=== PATIENT | female | born 1940 | race Caucasian/White ===

== ENCOUNTER → 2016-11-03 | Outpatient (REF) | payer OTHER, MEDICAID ==
[~2016-11-03] MED LIST: ALBU17IN INH; ASPI325T PO; ATOR1TAB21 PO; BREO1INH INH; COLA100C PO; ELIQ5TAB PO; INCR1INH INH; LEVO500T32 PO; LISI-538 PO; METO25TAB PO; PANT40TA2 PO; SENN1TAB2 PO; SYNT100T PO; VITA100066 PO
[2016-11-03 13:02] LABS: MEAN CORPUSCULAR HEMOGLOBIN 28.6 pg (27.0-33.0); MEAN CORPUSCULAR HGB CONC 31.5 g/dl (32.0-36.5); MEAN CORPUSCULAR VOLUME 90.8 fl (80.0-96.0); RED CELL DISTRIBUTION WIDTH 13.3 % (11.5-14.5); WHITE BLOOD COUNT 6.9 K/mm3 (4.0-10.0)
[2016-11-03 13:49] LABS: ALBUMIN 3.4 GM/DL (3.2-5.2); ALBUMIN/GLOBULIN RATIO 1.06 (1.00-1.93); ALKALINE PHOSPHATASE 89 U/L (45-117); ALT/SGPT 19 U/L (12-78); ANION GAP 4 MEQ/L (8-16); AST/SGOT 18 U/L (15-37); BILIRUBIN,TOTAL 0.5 MG/DL (0.2-1.0); BLOOD UREA NITROGEN 11 MG/DL (7-18); CALCIUM LEVEL 8.8 MG/DL (8.8-10.2); CARBON DIOXIDE LEVEL 30 MEQ/L (21-32); CHLORIDE LEVEL 107 MEQ/L (98-107); CREATININE FOR GFR 0.82 MG/DL (0.55-1.02); GLOMERULAR FILTRATION RATE > 60.0 (>39); GLUCOSE, FASTING 88 MG/DL (83-110); POTASSIUM SERUM 4.9 MEQ/L (3.5-5.1); SODIUM LEVEL 141 MEQ/L (136-145); TOTAL PROTEIN 6.6 GM/DL (6.4-8.2)
== END ==
LOC: M SFHCADAM 10:07
PROVIDERS: ATTEND Physician Assistant
DX: I48.0 Paroxysmal atrial fibrillation (principal); I11.9 Hypertensive heart disease without heart failure

== ENCOUNTER 2016-11-09 11:45 | Emergency (ER) | payer OTHER, MEDICAID ==
[2016-11-09] MEDS ORDERED: ASPIRIN 81 MG CHEW TABLET As Ordered ONE (12:16)
[2016-11-09] MEDS ORDERED: METOPROLOL TART 25 MG TABLET As Ordered ONE (12:17)
--- NOTE | 2016-11-09 12:53 | REP ---
Clinical: Chest pain. Technique: PA and lateral. Comparison: 08/19/2016 . Findings: Stable cardiomegaly and diffuse chronic interstitial changes are again appreciated and similar to prior examination. Mild pulmonary venous congestion cannot be excluded. No acute consolidation, or pneumothorax. Blunting along the posterior costophrenic angles on lateral radiographs suggest small pleural effusions. Skeletal structures intact. Impression: Cannot exclude mild pulmonary venous congestion and small pleural effusions. Signed by Mike Meraz MD 11/09/2016 12:45 P
[2016-11-09 12:55] LABS: BASO % 0.4 % (0.0-1.0); EOS # 0.2 K/mm3 (0.0-0.50); EOS % 3.4 % (0.0-3.0); LARGE UNSTAINED CELL # 0.2 K/mm3 (0.0-0.4); LARGE UNSTAINED CELL % 2.2 % (0.0-4.0); MEAN CORPUSCULAR HEMOGLOBIN 29.1 pg (27.0-33.0); MEAN CORPUSCULAR HGB CONC 32.3 g/dl (32.0-36.5); MEAN CORPUSCULAR VOLUME 90.1 fl (80.0-96.0); MONO # 0.4 K/mm3 (0.0-0.8); MONO % 5.9 % (0.0-5.0); NEUTROPHILS # 4.3 K/mm3 (1.8-7.7); NEUTROPHILS % 62.2 % (36.0-66.0); PLATELET COUNT, AUTOMATED 328 k/mm3 (150-450); RED CELL DISTRIBUTION WIDTH 13.1 % (11.5-14.5); WHITE BLOOD COUNT 6.9 K/mm3 (4.0-10.0)
[2016-11-09 13:08] LABS: ANION GAP 5 MEQ/L (8-16); BLOOD UREA NITROGEN 14 MG/DL (7-18); CARBON DIOXIDE LEVEL 31 MEQ/L (21-32); CHLORIDE LEVEL 107 MEQ/L (98-107); GLOMERULAR FILTRATION RATE > 60.0 (>39); GLUCOSE, FASTING 111 MG/DL (83-110); POTASSIUM SERUM 4.3 MEQ/L (3.5-5.1); SODIUM LEVEL 143 MEQ/L (136-145)
--- NOTE | 2016-11-09 13:27 | REP ---
CT HEAD WITHOUT CONTRAST: HISTORY: Headache. Areas of decreased attenuation are present in the periventricular white matter. This represents small vessel ischemic disease. There is no intraparenchymal hemorrhage, mass or midline shift. The ventricular system and cortical sulci are dilated consistent with minimal volume loss. There is no extracerebral collection. The visualized sinuses are clear. IMPRESSION: 1. Small vessel ischemic disease. 2. Minimal volume loss. Signed by Darryl Levy MD 11/09/2016 01:27 P
[2016-11-09] MEDS ORDERED: ISOVUE-370 76% 100ML VIAL (Q9967) As Ordered ONE (13:37)
--- NOTE | 2016-11-09 14:11 | REP ---
Clinical: Acute chest pain. Technique: Axial contrast enhanced images from the thoracic inlet to the upper abdomen using 100 ml Isovue 370 intravenous contrast material with coronal and sagittal re-formations. Findings: Satisfactory enhancement of the pulmonary vasculature is achieved and no filling defects are identified to suggest pulmonary embolus. Lung berry demonstrate mild emphysematous changes as well as minimal posterior basilar atelectasis (left greater than right). Cardiomegaly is noted along with findings to suggest pulmonary vascular congestion. Impression: No evidence for pulmonary embolus. Cardiomegaly with findings to suggest mild pulmonary vascular congestion including minimal posterior basilar atelectasis (left greater than right). Signed by Mike Meraz MD 11/09/2016 02:03 P
[2016-11-09] MEDS ORDERED: FUROSEMIDE 40 MG/4 ML VIAL (J1940) As Ordered ONE (14:24)
--- NOTE | 2016-11-09 19:24 | EDDOCDS ---
Physician Documentation [facility] Name: Cecilia Winn Age: 76 yrs Sex: Female : 1940 Arrival Date: 11/09/2016 Time: 11:45 Bed OBSERVATION Private MD: Catracho Diaz MD Disposition: 11/09/16 19:10 Discharged to Home/Self Care. Impression: Essential (primary) hypertension, Chest pain, unspecified. - Condition is Stable. - Discharge Instructions: Nonspecific Chest Pain, Hypertension. - Medication Reconciliation, Local Pharmacy Hours form. - Follow up: Catracho Diaz; When: Tomorrow; Reason: Recheck today's complaints. Follow up: Michael Carlson MD; When: 2 - 3 days; Reason: Recheck today's complaints. - Problem is new. - Symptoms are resolved. - Notes: You were seen in the ED for high blood pressure with chest pain, which has now resolved. Bloodwork along with EKG of the heart showed no acute findings. Chest Xray and CT scan of the chest showed mild congestion in the lungs, and you were treated with a medicine Lasix to get rid of some excess fluid. Dr. Ambrosio of cardiology was consulted as well and recommended that as you are feeling better you may return home to follow up with them in their office as well as with your primary doctor for recheck of the blood pressure. Please call to arrange to be seen in the morning. Return to the ED for any return of chest pain, trouble breathing, headache, visual changes, or any other concerns. Historical: - Allergies: no known allergies; - Home Meds: 1. Ventolin Rotahaler/Rotacaps 200 mcg Inhl CpDv 2 puff 2. lisinopril 20 mg Oral tab once daily 3. atorvastatin 20 mg oral tab 1 tab once daily 4. Incruse Ellipta 62.5 mcg/actuation inhalation dsdv 1 puff once daily 5. Breo Ellipta 100-25 mcg/dose inhalation dsdv 1 puff once daily 6. levothyroxine 100 mcg Oral cap 1 cap once daily 7. Metoprolol Tartrate 12.5mg Oral 2 times per day 8. senna 8.6 mg oral cap 2 caps once daily 9. docusate sodium 100 mg Oral cap 1 cap once daily 10. pantoprazole 40 mg oral TbEC 1 tab once daily 11. Vitamin D Oral 1000 unit daily 12. Eliquis 5 mg oral tab 1 tab 2 times per day - PMHx: Hypothyroidism; Atrial Fib; Hypertension; Hypercholesterolemia; COPD; GERD; - PSHx: Appendectomy; - Social history: Smoking status: Patient states former smoker of tobacco. No barriers to communication noted, The patient speaks fluent Portuguese, Speaks appropriately for age. - Family history: Not pertinent. - : The pt / caregiver states he / she is on anticoagulants: Eliquis Home medication list is obtained from the patient. - Exposure Risk Screening:: None identified. Vital Signs: 11/09 11:49 BP 187 / 82 RA Sitting (auto/lg); Pulse 56; Resp 16; Temp 98.6(O); Pulse Ox 100% on rs6 R/A; Weight 101.6 kg / 223.99 lbs (R); Height 5 ft. 7 in. (170.18 cm) (R); Pain 3/10; 12:35 BP 185 / 82 RA Supine (man/lg); rs3 12:53 Pulse 52 MON; Pulse Ox 95% ; rs3 13:53 BP 175 / 93 (auto/); rs3 13:55 Pulse 52 MON; Pulse Ox 94% ; rs3 14:05 BP 164 / 76 (auto/); rs3 14:05 Pulse 52 MON; Pulse Ox 92% ; rs3 14:35 BP 194 / 85 (auto/); rs3 14:35 Pulse 54 MON; Pulse Ox 96% ; rs3 14:50 BP 179 / 81 (auto/); rs3 14:50 Pulse 50 MON; Pulse Ox 92% ; rs3 15:20 BP 164 / 76 (auto/); rs3 15:20 Pulse 50 MON; Pulse Ox 93% ; rs3 15:35 BP 173 / 81 (auto/); rs3 15:35 Pulse 50 MON; Pulse Ox 96% ; rs3 15:50 BP 164 / 75 (auto/); rs3 15:50 Pulse 50 MON; Pulse Ox 92% ; rs3 16:05 BP 155 / 74 (auto/); rs3 16:05 Pulse 50 MON; Pulse Ox 94% ; rs3 16:35 BP 146 / 71 (auto/); rs3 16:35 Pulse 48 MON; Pulse Ox 93% ; rs3 16:50 BP 137 / 72 (auto/); rs3 16:50 Pulse 46 MON; Pulse Ox 94% ; rs3 17:05 BP 153 / 72 (auto/); rs3 17:05 Pulse 52 MON; Pulse Ox 93% ; rs3 17:20 BP 176 / 80 (auto/); rs3 17:20 Pulse 50 MON; Pulse Ox 95% ; rs3 17:35 BP 158 / 74 (auto/); rs3 17:35 Pulse 50 MON; Pulse Ox 95% ; rs3 17:51 BP 144 / 67 (auto/); rs3 17:51 Pulse 66 MON; Pulse Ox 93% ; rs3 18:06 BP 188 / 81 (auto/); rs3 18:06 Pulse 62 MON; Pulse Ox 94% ; rs3 18:21 BP 167 / 72 (auto/); rs3 18:21 Pulse 52 MON; Pulse Ox 94% ; rs3 18:34 Pulse 54 MON; Pulse Ox 94% ; rs3 18:36 BP 152 / 67 (auto/); kas2 18:36 Pulse 58 MON; Pulse Ox 95% ; kas2 18:51 BP 137 / 65 (auto/); kas2 18:51 Pulse 52 MON; Pulse Ox 92% ; kas2 19:06 BP 124 / 53 (auto/); kas2 19:06 Pulse 48 MON; Pulse Ox 94% ; kas2 19:22 BP 128 / 57; Pulse 53; Resp 18; Temp 98.0; Pulse Ox 99% on R/A; Pain 0/10; kas2 11:49 Body Mass Index 35.08 (101.60 kg, 170.18 cm) rs6 MDM: 12:08 Wafer Substrate Tester/Pulse Ox/q 30 min VS ordered. br1 12:08 IV Saline Lock ordered. br1 12:08 Rhythm Strip to chart ordered. br1 12:08 Undress patient appropriately for examination ordered. br1 12:09 Aspirin 324 mg PO once ordered. br1 12:09 Metoprolol (Tartrate) 12.5 mg PO once ordered. br1 12:10 Basic Metabolic Profile Ordered. EDMS 12:10 CBC with Diff Ordered. EDMS 12:10 Cardiac Injury Profile Ordered. EDMS 12:10 Troponin Ordered. EDMS 12:11 Chest, 2 View (pa\E\lat) Ordered. EDMS 12:11 ECG WITH READING ER PHYS+CARDIAG ordered. EDMS 12:11 CT Head Without Contrast Ordered. EDMS 12:12 Misc. Nursing Order ordered. br1 12:50 Financial registration complete. lg 12:59 CBC with Diff Reviewed. br1 13:29 [facility] [place] was scanned into [email or web address] and attached to record. lg 13:34 Basic Metabolic Profile Reviewed. br1 13:34 Cardiac Injury Profile Reviewed. br1 13:34 Troponin Reviewed. br1 13:34 Chest, 2 View (pa\E\lat) Reviewed. br1 13:36 CT Chest Angio R/O PE Ordered. EDMS 14:19 Furosemide 40 mg IVP once ordered. br1 14:32 Admit to ED Observation status ordered. br1 14:33 Repeat EKG (put time details section) ordered. br1 14:33 Redraw CIP &Troponin (put time in details section) ordered. br1 14:38 ECG WITH READING ER PHYS ordered. EDMS 14:39 CARDIAC MARKER PANEL Ordered. EDMS 14:45 Redraw CIP &Troponin (put time in details section) complete. mt4 14:45 Repeat EKG (put time details section) complete. mt4 14:45 Admit to ED Observation status complete. mt4 15:55 Ambulate Patient wth Pulse Oximetry ordered. br1 18:42 CARDIAC MARKER PANEL Reviewed. br1 18:42 CT Head Without Contrast Reviewed. br1 18:42 CT Chest Angio R/O PE Reviewed. br1 Administered Medications: 12:35 Drug: Aspirin 324 mg [aspirin 81 mg chewable tablet (4 tabs)] Route: PO; rs3 12:35 Drug: Metoprolol 12.5 mg [metoprolol tartrate 25 mg tablet (0.5 tabs)] Route: PO; rs3 14:27 Drug: Furosemide 40 mg [furosemide 10 mg/mL injection solution (4 mL)] Route: IVP; rs3 Site: right antecubital; Signatures: Dispatcher [employer] EDMS Alena Fung Reg Reg lg Jose Ball MD MD br1 Candie Escobar mt4 Ya Aranda RN RN pml Smith, Kim, RN RN [facility] Erna Chavira RN rs3 The chart was reviewed and I authenticate all verbal orders and agree with the evaluation and treatment provided.Attachments: 13:29 [facility] Payment Agreement lg MTDD
--- NOTE | 2016-11-09 19:24 | EDDOCDS ---
Nurse's Notes [facility] Name: Cecilia Winn Age: 76 yrs Sex: Female : 1940 Arrival Date: 11/09/2016 Time: 11:45 Bed OBSERVATION Private MD: Catracho Diaz MD Diagnosis: Essential (primary) hypertension;Chest pain, unspecified Presentation: 11/09 11:50 Presenting complaint: Patient states: reports high blood pressure this morning with pml home machine. reports hx of hypertension and compliance with meds. reports intermittent chest pain off and on. none at this time. Adult Sepsis Screening: The patient does not have new or worsening altered mentation. Patient's respiratory rate is less than 22. Systolic blood pressure is greater than 100. Patient has a qSOFA score of 0- Negative Sepsis Screen. Suicide/Homicide risk assessment- the patient denies having any suicidal and/or homicidal ideations and does not present with any other emotional, behavioral or mental health complaints. Status: Patient is not a health services director or dependent. Transition of care: patient was not received from another setting of care. 11:50 Acuity: MICKIE Level 3 [facility] 11:50 Method Of Arrival: Walkin/Carried/Asstd pml Triage Assessment: 11:56 General: Appears in no apparent distress, comfortable, Behavior is appropriate for age, pml cooperative. Pain: Denies pain. Historical: - Allergies: no known allergies; - Home Meds: 1. Ventolin Rotahaler/Rotacaps 200 mcg Inhl CpDv 2 puff 2. lisinopril 20 mg Oral tab once daily 3. atorvastatin 20 mg oral tab 1 tab once daily 4. Incruse Ellipta 62.5 mcg/actuation inhalation dsdv 1 puff once daily 5. Breo Ellipta 100-25 mcg/dose inhalation dsdv 1 puff once daily 6. levothyroxine 100 mcg Oral cap 1 cap once daily 7. Metoprolol Tartrate 12.5mg Oral 2 times per day 8. senna 8.6 mg oral cap 2 caps once daily 9. docusate sodium 100 mg Oral cap 1 cap once daily 10. pantoprazole 40 mg oral TbEC 1 tab once daily 11. Vitamin D Oral 1000 unit daily 12. Eliquis 5 mg oral tab 1 tab 2 times per day - PMHx: Hypothyroidism; Atrial Fib; Hypertension; Hypercholesterolemia; COPD; GERD; - PSHx: Appendectomy; - Social history: Smoking status: Patient states former smoker of tobacco. No barriers to communication noted, The patient speaks fluent Icelandic, Speaks appropriately for age. - Family history: Not pertinent. - : The pt / caregiver states he / she is on anticoagulants: Eliquis Home medication list is obtained from the patient. - Exposure Risk Screening:: None identified. Screenin:56 Screening information is obtained from the patient. Fall risk: No risks identified. rs3 Assistance ADL's: requires no assistance with activities of daily living. Abuse/DV Screen: The patient / caregiver reports he/she is: not in a situation that causes fear, pain or injury. Nutritional screening: No deficits noted. Advance Directives: Currently, there is a health care proxy, ANIYAH Valdovinos (Daughter). There is an active DNR order but there is no copy available at this time. home support is adequate. Assessment: 12:19 General: Appears in no apparent distress, Behavior is appropriate for age, cooperative. rs3 Pain: Location: anterior aspect of left upper chest and left breast. Neurological: Level of Consciousness is awake, alert, Oriented to person, place, time. Cardiovascular: Capillary refill < 3 seconds Clubbing of nail beds is absent Heart tones S1 S2 present Rhythm is atrial fibrillation with no ectopy Chest pain is denied. Respiratory: Airway is patent Respiratory effort is even, unlabored, Respiratory pattern is regular, symmetrical, Breath sounds are clear bilaterally. Derm: Skin is pink, warm & dry. 13:55 General: Appears in no apparent distress, denies of chest pain. reports of generalized rs3 weakness. ambulated to bathroom. tolerated well. returned from CT. Tolerated procedure well. resting comfortable. call mack in reach. 14:55 General: Appears in no apparent distress, Behavior is appropriate for age, cooperative, rs3 denies of chest pain/distress. breathes easy. family at bedside. 15:50 General: Appears in no apparent distress, Behavior is appropriate for age, cooperative, rs3 denies of pain/distress. waiting for repeat card mike. family at bedside. 16:50 General: Appears in no apparent distress, denies of pain/distress. requesting food to rs3 eat. ramiro yakov given to her. waiting for repeat Card mike. 17:44 General: Appears in no apparent distress, Behavior is appropriate for age, cooperative, rs3 denies of pain/distress. family at bedside. will continue to monitor. . 18:34 General: Appears in no apparent distress, Behavior is appropriate for age, cooperative, rs3 denies of chest pain/distress. Had eaten sandwich. tolerated well. ambulated in oneal way. tolerated well. breathes easy. 19:04 General: Verbal report given by Kassy Daley RN. Assumed care of patient at this time.. kas2 19:20 General: Appears in no apparent distress, comfortable, Behavior is appropriate for age, kas2 cooperative. Pain: Denies pain. Neurological: Level of Consciousness is awake, alert, Oriented to person, place, time. Cardiovascular: Capillary refill < 3 seconds Clubbing of nail beds is absent Heart tones S1 S2 present Rhythm is atrial fibrillation with no ectopy Chest pain is denied. Respiratory: Airway is patent Respiratory effort is even, unlabored, Respiratory pattern is regular, symmetrical, Breath sounds are clear bilaterally. Derm: Skin is intact, Skin is dry, Skin is pink, warm & dry. Skin temperature is warm. Vital Signs: 11:49 BP 187 / 82 RA Sitting (auto/lg); Pulse 56; Resp 16; Temp 98.6(O); Pulse Ox 100% on rs6 R/A; Weight 101.6 kg (R); Height 5 ft. 7 in. (170.18 cm) (R); Pain 3/10; 12:35 BP 185 / 82 RA Supine (man/lg); rs3 12:53 Pulse 52 MON; Pulse Ox 95% ; rs3 13:53 BP 175 / 93 (auto/); rs3 13:55 Pulse 52 MON; Pulse Ox 94% ; rs3 14:05 BP 164 / 76 (auto/); rs3 14:05 Pulse 52 MON; Pulse Ox 92% ; rs3 14:35 BP 194 / 85 (auto/); rs3 14:35 Pulse 54 MON; Pulse Ox 96% ; rs3 14:50 BP 179 / 81 (auto/); rs3 14:50 Pulse 50 MON; Pulse Ox 92% ; rs3 15:20 BP 164 / 76 (auto/); rs3 15:20 Pulse 50 MON; Pulse Ox 93% ; rs3 15:35 BP 173 / 81 (auto/); rs3 15:35 Pulse 50 MON; Pulse Ox 96% ; rs3 15:50 BP 164 / 75 (auto/); rs3 15:50 Pulse 50 MON; Pulse Ox 92% ; rs3 16:05 BP 155 / 74 (auto/); rs3 16:05 Pulse 50 MON; Pulse Ox 94% ; rs3 16:35 BP 146 / 71 (auto/); rs3 16:35 Pulse 48 MON; Pulse Ox 93% ; rs3 16:50 BP 137 / 72 (auto/); rs3 16:50 Pulse 46 MON; Pulse Ox 94% ; rs3 17:05 BP 153 / 72 (auto/); rs3 17:05 Pulse 52 MON; Pulse Ox 93% ; rs3 17:20 BP 176 / 80 (auto/); rs3 17:20 Pulse 50 MON; Pulse Ox 95% ; rs3 17:35 BP 158 / 74 (auto/); rs3 17:35 Pulse 50 MON; Pulse Ox 95% ; rs3 17:51 BP 144 / 67 (auto/); rs3 17:51 Pulse 66 MON; Pulse Ox 93% ; rs3 18:06 BP 188 / 81 (auto/); rs3 18:06 Pulse 62 MON; Pulse Ox 94% ; rs3 18:21 BP 167 / 72 (auto/); rs3 18:21 Pulse 52 MON; Pulse Ox 94% ; rs3 18:34 Pulse 54 MON; Pulse Ox 94% ; rs3 18:36 BP 152 / 67 (auto/); kas2 18:36 Pulse 58 MON; Pulse Ox 95% ; kas2 18:51 BP 137 / 65 (auto/); kas2 18:51 Pulse 52 MON; Pulse Ox 92% ; kas2 19:06 BP 124 / 53 (auto/); kas2 19:06 Pulse 48 MON; Pulse Ox 94% ; kas2 19:22 BP 128 / 57; Pulse 53; Resp 18; Temp 98.0; Pulse Ox 99% on R/A; Pain 0/10; kas2 11:49 Body Mass Index 35.08 (101.60 kg, 170.18 cm) rs6 Vitals: 11:56 Log In Time: November 09, 2016 at 11:45. [facility] ED Course: 11:48 Patient visited by Pema Priest PCA. rs6 11:48 Catracho Diaz is Private Physician. rs6 11:48 Patient moved to Waiting rs6 11:49 Patient moved to Pre RCE rs6 11:50 Triage Initiated pml 11:56 Patient visited by Ya Aranda,RN. pml 11:57 Patient visited by Ya Aranda,THADDEUS. pml 11:57 Erna Chavira,THADDEUS is Primary Nurse. pml 11:57 Patient moved to 7 pml 11:58 Jose Ball MD is Attending Physician. br1 12:08 Patient visited by Jose Ball MD. br1 12:36 Basic Metabolic Profile Sent. rs3 12:36 CBC with Diff Sent. rs3 12:36 Cardiac Injury Profile Sent. rs3 12:36 Troponin Sent. rs3 12:42 Patient visited by Erna Chavira RN. rs3 13:09 Chest, 2 View (pa\E\lat) Returned. EDMS 13:29 [facility] [place] Payment Agreement was scanned into [employer] and attached to record. lg 13:33 Patient visited by Erna Chavira RN. rs3 13:51 CT Head Without Contrast Returned. EDMS 13:56 Inserted saline lock: 20 gauge in right antecubital area and blood collected. The rs3 patient tolerated the procedure well. Labs drawn. (by ED staff). 14:06 Patient visited by Erna Chavira RN. rs3 14:35 Patient moved to OBSERVATION mt4 14:36 CT Chest Angio R/O PE Returned. EDMS 18:13 Patient visited by Farrukh Salazar PCA. jlf 18:13 Patient visited by Farrukh Salazar PCA. jlf 18:13 quality assurance monitor chassis on. Pulse ox on. NIBP on. jlf 18:13 EKG done. (by ED staff). Reviewed by Jose Ball MD. jlf 18:56 Patient visited by Jose Ball MD. br1 18:59 Wendy Rudolph RN is Primary Nurse. kas2 19:09 Catracho Diaz is Referral Physician. br1 19:09 Michael Carlson MD is Referral Physician. br1 19:21 The patient / caregiver is instructed regarding the plan of care and ED course. kas2 19:21 Discontinued IV bleeding controlled, pressure dressing applied, No redness/swelling at kas2 site. No procedures done that require assistance. 19:22 Patient visited by Wendy Rudolph RN. [facility] [place] 19:23 Patient visited by Wendy Rudolph RN. [facility] [place] Administered Medications: 12:35 Drug: Aspirin 324 mg [aspirin 81 mg chewable tablet (4 tabs)] Route: PO; rs3 12:35 Drug: Metoprolol 12.5 mg [metoprolol tartrate 25 mg tablet (0.5 tabs)] Route: PO; rs3 14:27 Drug: Furosemide 40 mg [furosemide 10 mg/mL injection solution (4 mL)] Route: IVP; rs3 Site: right antecubital; Order Results: Lab Order: Basic Metabolic Profile; [facility] 11/09/16 12:33 Test: GLUCOSE, FASTING; Value: 111; Range: 83-110; Abnormal: Above high normal; Units: MG/DL; Status: F Test: BLOOD UREA NITROGEN; Value: 14; Range: 7-18; Units: MG/DL; Status: F Test: CREATININE FOR GFR; Value: 0.80; Range: 0.55-1.02; Units: MG/DL; Status: F Test: GLOMERULAR FILTRATION RATE; Value: > 60.0; Range: >39; Status: F Test: SODIUM LEVEL; Value: 143; Range: 136-145; Units: MEQ/L; Status: F Test: POTASSIUM SERUM; Value: 4.3; Range: 3.5-5.1; Units: MEQ/L; Status: F Test: CHLORIDE LEVEL; Value: 107; Range: 98-107; Units: MEQ/L; Status: F Test: CARBON DIOXIDE LEVEL; Value: 31; Range: 21-32; Units: MEQ/L; Status: F Test: ANION GAP; Value: 5; Range: 8-16; Abnormal: Below low normal; Units: MEQ/L; Status: F Test: CALCIUM LEVEL; Value: 9.0; Range: 8.8-10.2; Units: MG/DL; Status: F Test Note: ; Units are mL/min/1.73 m2 Chronic Kidney Disease Staging per NKF: Stage I & II GFR >=60 Normal to Mildly Decreased Stage III GFR 30-59 Moderately Decreased Stage IV GFR 15-29 Severely Decreased Stage V GFR <15 Very Little GFR Left ESRD GFR <15 on FRESCO ARTIST Lab Order: CBC with Diff; SPEC'M 11/09/16 12:33 Test: WHITE BLOOD COUNT; Value: 6.9; Range: 4.0-10.0; Units: K/mm3; Status: F Test: RED BLOOD COUNT; Value: 4.06; Range: 4.00-5.40; Units: M/mm3; Status: F Test: HEMOGLOBIN; Value: 11.8; Range: 12.0-16.0; Abnormal: Below low normal; Units: g/dl; Status: F Test: HEMATOCRIT; Value: 36.6; Range: 36.0-47.0; Units: %; Status: F Test: MEAN CORPUSCULAR VOLUME; Value: 90.1; Range: 80.0-96.0; Units: fl; Status: F Test: MEAN CORPUSCULAR HEMOGLOBIN; Value: 29.1; Range: 27.0-33.0; Units: pg; Status: F Test: MEAN CORPUSCULAR HGB CONC; Value: 32.3; Range: 32.0-36.5; Units: g/dl; Status: F Test: RED CELL DISTRIBUTION WIDTH; Value: 13.1; Range: 11.5-14.5; Units: %; Status: F Test: PLATELET COUNT, AUTOMATED; Value: 328; Range: 150-450; Units: k/mm3; Status: F Test: NEUTROPHILS %; Value: 62.2; Range: 36.0-66.0; Units: %; Status: F Test: LYMPH %; Value: 26.0; Range: 24.0-44.0; Units: %; Status: F Test: MONO %; Value: 5.9; Range: 0.0-5.0; Abnormal: Above high normal; Units: %; Status: F Test: EOS %; Value: 3.4; Range: 0.0-3.0; Abnormal: Above high normal; Units: %; Status: F Test: BASO %; Value: 0.4; Range: 0.0-1.0; Units: %; Status: F Test: LARGE UNSTAINED CELL %; Value: 2.2; Range: 0.0-4.0; Units: %; Status: F Test: NEUTROPHILS #; Value: 4.3; Range: 1.8-7.7; Units: K/mm3; Status: F Test: LYMPH #; Value: 2.0; Range: 1.5-4.5; Units: K/mm3; Status: F Test: MONO #; Value: 0.4; Range: 0.0-0.8; Units: K/mm3; Status: F Test: EOS #; Value: 0.2; Range: 0.0-0.50; Units: K/mm3; Status: F Test: BASO #; Value: 0.0; Range: 0.0-0.2; Units: K/mm3; Status: F Test: LARGE UNSTAINED CELL #; Value: 0.2; Range: 0.0-0.4; Units: K/mm3; Status: F Lab Order: Cardiac Injury Profile; [facility] 11/09/16 12:33 Test: CPK CREATINE PHOSPHOKINASE; Value: 38; Range: 26-192; Units: U/L; Status: F Test: CK-MB VALUE MASS; Value: 1.0; Range: 0.0-3.6; Units: NG/ML; Status: F Test: MB/CK RELATIVE INDEX; Value: 2.63; Range: < OR =4; Status: F Test Note: ; DIAGNOSIS CRITERIA MMB ng/ml Relative Index (RI) NON-AMI < or = 5 N/A CURRAN ZONE > 5 < or = 4 AMI > 5 > 4 Lab Order: Troponin; [facility] 11/09/16 12:33 Test: TROPONIN I; Value: < 0.02; Range: < 0.10; Units: NG/ML; Status: F Test Note: ; Troponin I Reference Interval for [employer] LOCI: 99th Percentile= 0.00-0.045 ng/ml Risk Stratification: <= 0.10 ng/ml Decreased Risk for Adverse Clinical Events. 0.10-1.50 ng/ml Increased Risk for Adverse Clinical Events. Evaluation of additional criterion and/or repeat testing in 2-6 hours is suggested to rule out myocardial damage. >= 1.50 ng/ml Indicative of Myocardial Injury. Lab Order: CARDIAC MARKER PANEL; [facility] 11/09/16 17:46 Test: CPK CREATINE PHOSPHOKINASE; Value: 52; Range: 26-192; Units: U/L; Status: F Test: CK-MB VALUE MASS; Value: 1.0; Range: 0.0-3.6; Units: NG/ML; Status: F Test: MB/CK RELATIVE INDEX; Value: 1.92; Range: < OR =4; Status: F Test: TROPONIN I; Value: < 0.02; Range: < 0.10; Units: NG/ML; Status: F Test Note: ; DIAGNOSIS CRITERIA MMB ng/ml Relative Index (RI) NON-AMI < or = 5 N/A CURRAN ZONE > 5 < or = 4 AMI > 5 > 4 Radiology Order: Chest, 2 View (pa\E\lat) Test: Chest, 2 View (pa\E\lat) REASON FOR EXAMINATION: Chest Pain; Clinical: Chest pain.; ; Technique: PA and lateral.; ; Comparison: 08/19/2016 .; ; Findings:; Stable cardiomegaly and diffuse chronic interstitial changes are again; appreciated and similar to prior examination. Mild pulmonary venous congestion; cannot be excluded. No acute consolidation, or pneumothorax. Blunting along the; posterior costophrenic angles on lateral radiographs suggest small pleural; effusions. Skeletal structures intact.; ; Impression:; Cannot exclude mild pulmonary venous congestion and small pleural effusions.; ; ; Signed by; Mike Meraz MD 11/09/2016 12:45 P; Radiology Order: CT Head Without Contrast Test: CT Head Without Contrast REASON FOR EXAMINATION: htn headache eval for ich; CT HEAD WITHOUT CONTRAST:; ; HISTORY: Headache.; ; Areas of decreased attenuation are present in the periventricular white matter.; This represents small vessel ischemic disease. There is no intraparenchymal; hemorrhage, mass or midline shift. The ventricular system and cortical sulci are; dilated consistent with minimal volume loss. There is no extracerebral; collection. The visualized sinuses are clear.; ; IMPRESSION:; ; 1. Small vessel ischemic disease.; ; 2. Minimal volume loss.; ; ; Signed by; Darryl Levy MD 11/09/2016 01:27 P; Radiology Order: CT Chest Angio R/O PE Test: CT Chest Angio R/O PE REASON FOR EXAMINATION: Chest Pain; Clinical: Acute chest pain.; ; Technique: Axial contrast enhanced images from the thoracic inlet to the upper; abdomen using 100 ml Isovue 370 intravenous contrast material with coronal and; sagittal re-formations.; ; Findings: Satisfactory enhancement of the pulmonary vasculature is achieved and; no filling defects are identified to suggest pulmonary embolus. Lung berry; demonstrate mild emphysematous changes as well as minimal posterior basilar; atelectasis (left greater than right). Cardiomegaly is noted along with findings; to suggest pulmonary vascular congestion.; ; Impression:; No evidence for pulmonary embolus.; Cardiomegaly with findings to suggest mild pulmonary vascular congestion; including minimal posterior basilar atelectasis (left greater than right).; ; ; Signed by; Mike Meraz MD 11/09/2016 02:03 P; Outcome: 19:10 Discharge ordered by Provider. br1 19:21 Discharge Assessment: patient administered narcotics - no. The following High Risk [facility] Discharge criteria are identified: None. Discharged to home ambulatory, with family. Condition: good Condition: stable Condition: improved. CT Study completed. Property :Personal belongings accompany Pt. 19:23 Patient left the ED. kas2 Signatures: Dispatcher [employer] EDMS Alena Fung, Reg Reg lg Jose Ball MD MD br1 Candie Escobar mt4 Erna ChaviraRN RN rs3 Ya ArandaRN RN pml Farrukh Salazar, TORCH STRAIGHTENER TORCH STRAIGHTENER [facility] Pema Priest, TORCH STRAIGHTENER TORCH STRAIGHTENER rs6 Wendy Rudolph,RN RN kas2 Corrections: (The following items were deleted from the chart) 11:57 11:50 Presenting complaint: Patient states: reports high blood pressure this morning pml with home machine. reports hx of hypertension and compliance with meds. denies any other associated symptoms pml MTDD
--- NOTE | 2016-11-09 20:16 | ECGEPIP ---
Stationary ECG Study [facility] - ED Test Date: 2016-11-09 Pat Name: JERONIMO ACE Department: Room: - Gender: F Technical Support Assistant: : 1940 Requested By: YULIANA Patel Order Number: [id number] Reading MD: Jennifer Ames Measurements Intervals [place] Rate: 56 P: 65 SD: 141 QRS: 47 QRSD: 94 T: 42 QT: 444 QTc: 430 Interpretive Statements SINUS BRADYCARDIA DECREASED RATE 08/19/16 Electronically Signed On 11-09-2016 20:16:07 EST by Jennifer Ames
--- NOTE | 2016-11-11 08:15 | ECGEPIP ---
Stationary ECG Study [facility] - ED Test Date: 2016-11-09 Pat Name: JERONIMO ACE Department: Room: - Gender: F Insurance Collector: norma : 1940 Requested By: YULIANA Patel Order Number: [id number] Reading MD: Jennifer Ames Measurements Intervals [place] Rate: 56 P: 62 PA: 134 QRS: 29 QRSD: 94 T: 45 QT: 456 QTc: 443 Interpretive Statements SINUS BRADYCARDIA NSTTW ABNORMALITY SIMILAR 11/09/16 12:24 Electronically Signed On 11-11-2016 8:15:23 EST by Jennifer Ames
--- NOTE | 2016-11-11 20:25 | EDDOCDS ---
Physician Documentation [facility] Name: Cecilia Winn Age: 76 yrs Sex: Female : 1940 Arrival Date: 11/09/2016 Time: 11:45 Bed OBSERVATION Private MD: Catracho Diaz MD Disposition: 11/09/16 19:10 Discharged to Home/Self Care. Impression: Essential (primary) hypertension, Chest pain, unspecified. - Condition is Stable. - Discharge Instructions: Nonspecific Chest Pain, Hypertension. - Medication Reconciliation, Local Pharmacy Hours form. - Follow up: Catracho Diaz; When: Tomorrow; Reason: Recheck today's complaints. Follow up: Michael Carlson MD; When: 2 - 3 days; Reason: Recheck today's complaints. - Problem is new. - Symptoms are resolved. - Notes: You were seen in the ED for high blood pressure with chest pain, which has now resolved. Bloodwork along with EKG of the heart showed no acute findings. Chest Xray and CT scan of the chest showed mild congestion in the lungs, and you were treated with a medicine Lasix to get rid of some excess fluid. Dr. Ambrosio of cardiology was consulted as well and recommended that as you are feeling better you may return home to follow up with them in their office as well as with your primary doctor for recheck of the blood pressure. Please call to arrange to be seen in the morning. Return to the ED for any return of chest pain, trouble breathing, headache, visual changes, or any other concerns. Historical: - Allergies: no known allergies; - Home Meds: 1. Ventolin Rotahaler/Rotacaps 200 mcg Inhl CpDv 2 puff 2. lisinopril 20 mg Oral tab once daily 3. atorvastatin 20 mg oral tab 1 tab once daily 4. Incruse Ellipta 62.5 mcg/actuation inhalation dsdv 1 puff once daily 5. Breo Ellipta 100-25 mcg/dose inhalation dsdv 1 puff once daily 6. levothyroxine 100 mcg Oral cap 1 cap once daily 7. Metoprolol Tartrate 12.5mg Oral 2 times per day 8. senna 8.6 mg oral cap 2 caps once daily 9. docusate sodium 100 mg Oral cap 1 cap once daily 10. pantoprazole 40 mg oral TbEC 1 tab once daily 11. Vitamin D Oral 1000 unit daily 12. Eliquis 5 mg oral tab 1 tab 2 times per day - PMHx: Hypothyroidism; Atrial Fib; Hypertension; Hypercholesterolemia; COPD; GERD; - PSHx: Appendectomy; - Social history: Smoking status: Patient states former smoker of tobacco. No barriers to communication noted, The patient speaks fluent [place], Speaks appropriately for age. - Family history: Not pertinent. - : The pt / caregiver states he / she is on anticoagulants: Eliquis Home medication list is obtained from the patient. - Exposure Risk Screening:: None identified. Vital Signs: 11/09 11:49 BP 187 / 82 RA Sitting (auto/lg); Pulse 56; Resp 16; Temp 98.6(O); Pulse Ox 100% on rs6 R/A; Weight 101.6 kg / 223.99 lbs (R); Height 5 ft. 7 in. (170.18 cm) (R); Pain 3/10; 12:35 BP 185 / 82 RA Supine (man/lg); rs3 12:53 Pulse 52 MON; Pulse Ox 95% ; rs3 13:53 BP 175 / 93 (auto/); rs3 13:55 Pulse 52 MON; Pulse Ox 94% ; rs3 14:05 BP 164 / 76 (auto/); rs3 14:05 Pulse 52 MON; Pulse Ox 92% ; rs3 14:35 BP 194 / 85 (auto/); rs3 14:35 Pulse 54 MON; Pulse Ox 96% ; rs3 14:50 BP 179 / 81 (auto/); rs3 14:50 Pulse 50 MON; Pulse Ox 92% ; rs3 15:20 BP 164 / 76 (auto/); rs3 15:20 Pulse 50 MON; Pulse Ox 93% ; rs3 15:35 BP 173 / 81 (auto/); rs3 15:35 Pulse 50 MON; Pulse Ox 96% ; rs3 15:50 BP 164 / 75 (auto/); rs3 15:50 Pulse 50 MON; Pulse Ox 92% ; rs3 16:05 BP 155 / 74 (auto/); rs3 16:05 Pulse 50 MON; Pulse Ox 94% ; rs3 16:35 BP 146 / 71 (auto/); rs3 16:35 Pulse 48 MON; Pulse Ox 93% ; rs3 16:50 BP 137 / 72 (auto/); rs3 16:50 Pulse 46 MON; Pulse Ox 94% ; rs3 17:05 BP 153 / 72 (auto/); rs3 17:05 Pulse 52 MON; Pulse Ox 93% ; rs3 17:20 BP 176 / 80 (auto/); rs3 17:20 Pulse 50 MON; Pulse Ox 95% ; rs3 17:35 BP 158 / 74 (auto/); rs3 17:35 Pulse 50 MON; Pulse Ox 95% ; rs3 17:51 BP 144 / 67 (auto/); rs3 17:51 Pulse 66 MON; Pulse Ox 93% ; rs3 18:06 BP 188 / 81 (auto/); rs3 18:06 Pulse 62 MON; Pulse Ox 94% ; rs3 18:21 BP 167 / 72 (auto/); rs3 18:21 Pulse 52 MON; Pulse Ox 94% ; rs3 18:34 Pulse 54 MON; Pulse Ox 94% ; rs3 18:36 BP 152 / 67 (auto/); kas2 18:36 Pulse 58 MON; Pulse Ox 95% ; kas2 18:51 BP 137 / 65 (auto/); kas2 18:51 Pulse 52 MON; Pulse Ox 92% ; kas2 19:06 BP 124 / 53 (auto/); kas2 19:06 Pulse 48 MON; Pulse Ox 94% ; kas2 19:22 BP 128 / 57; Pulse 53; Resp 18; Temp 98.0; Pulse Ox 99% on R/A; Pain 0/10; kas2 11:49 Body Mass Index 35.08 (101.60 kg, 170.18 cm) rs6 MDM: 12:08 Pairer Odds/Pulse Ox/q 30 min VS ordered. br1 12:08 IV Saline Lock ordered. br1 12:08 Rhythm Strip to chart ordered. br1 12:08 Undress patient appropriately for examination ordered. br1 12:09 Aspirin 324 mg PO once ordered. br1 12:09 Metoprolol (Tartrate) 12.5 mg PO once ordered. br1 12:10 Basic Metabolic Profile Ordered. EDMS 12:10 CBC with Diff Ordered. EDMS 12:10 Cardiac Injury Profile Ordered. EDMS 12:10 Troponin Ordered. EDMS 12:11 Chest, 2 View (pa\E\lat) Ordered. EDMS 12:11 ECG WITH READING ER PHYS+CARDIAG ordered. EDMS 12:11 CT Head Without Contrast Ordered. EDMS 12:12 Misc. Nursing Order ordered. br1 12:50 Financial registration complete. lg 12:59 CBC with Diff Reviewed. br1 13:29 [facility] Payment Agreement was scanned into [employer] and attached to record. lg 13:34 Basic Metabolic Profile Reviewed. br1 13:34 Cardiac Injury Profile Reviewed. br1 13:34 Troponin Reviewed. br1 13:34 Chest, 2 View (pa\E\lat) Reviewed. br1 13:36 CT Chest Angio R/O PE Ordered. EDMS 14:19 Furosemide 40 mg IVP once ordered. br1 14:32 Admit to ED Observation status ordered. br1 14:33 Repeat EKG (put time details section) ordered. br1 14:33 Redraw CIP &Troponin (put time in details section) ordered. br1 14:38 ECG WITH READING ER PHYS ordered. EDMS 14:39 CARDIAC MARKER PANEL Ordered. EDMS 14:45 Redraw CIP &Troponin (put time in details section) complete. mt4 14:45 Repeat EKG (put time details section) complete. mt4 14:45 Admit to ED Observation status complete. mt4 15:55 Ambulate Patient [facility] Pulse Oximetry ordered. br1 18:42 CARDIAC MARKER PANEL Reviewed. br1 18:42 CT Head Without Contrast Reviewed. br1 18:42 CT Chest Angio R/O PE Reviewed. br1 11/10 11:26 T-Sheet-- Draft Copy was scanned into [employer] and attached to record. gb 11:27 ECG/EKG was scanned into [employer] and attached to record. gb 11:27 Radiology Report was scanned into [employer] and attached to record. gb 11/11 09:49 Disposition: radiology report faxed to Dr. Ambrosio. sd1 Administered Medications: 11/09 12:35 Drug: Aspirin 324 mg [aspirin 81 mg chewable tablet (4 tabs)] Route: PO; rs3 12:35 Drug: Metoprolol 12.5 mg [metoprolol tartrate 25 mg tablet (0.5 tabs)] Route: PO; rs3 14:27 Drug: Furosemide 40 mg [furosemide 10 mg/mL injection solution (4 mL)] Route: IVP; rs3 Site: right antecubital; Signatures: Dispatcher [employer] Jennifer Kapoor MD MD sd1 Tere Paniagua, Reg Reg gb Alena Fung, Reg Reg lg Jose Ball MD MD br1 Candie Escobar mt4 Ya ArandaRN RN Wendy Hoffmann RN RN kas2 Erna Chavira RN rs3 The chart was reviewed and I authenticate all verbal orders and agree with the evaluation and treatment provided.Attachments: 13:29 [facility] [place] lg 11/10 11:26 T-Sheet-- Draft Copy gb 11:27 ECG/EKG gb Chart Complete MTDD
--- NOTE | 2016-11-11 20:25 | EDDOCDS ---
Nurse's Notes [facility] Name: Jeronimo Ace Age: 76 yrs Sex: Female : 1940 Arrival Date: 11/09/2016 Time: 11:45 Bed OBSERVATION Private MD: Catracho Diaz MD Diagnosis: Essential (primary) hypertension;Chest pain, unspecified Presentation: 11/09 11:50 Presenting complaint: Patient states: reports high blood pressure this morning with pml home machine. reports hx of hypertension and compliance with meds. reports intermittent chest pain off and on. none at this time. Adult Sepsis Screening: The patient does not have new or worsening altered mentation. Patient's respiratory rate is less than 22. Systolic blood pressure is greater than 100. Patient has a qSOFA score of 0- Negative Sepsis Screen. Suicide/Homicide risk assessment- the patient denies having any suicidal and/or homicidal ideations and does not present with any other emotional, behavioral or mental health complaints. Status: Patient is not a health services manager or dependent. Transition of care: patient was not received from another setting of care. 11:50 Acuity: MICKIE Level 3 [facility] 11:50 Method Of Arrival: Walkin/Carried/Asstd pml Triage Assessment: 11:56 General: Appears in no apparent distress, comfortable, Behavior is appropriate for age, pml cooperative. Pain: Denies pain. Historical: - Allergies: no known allergies; - Home Meds: 1. Ventolin Rotahaler/Rotacaps 200 mcg Inhl CpDv 2 puff 2. lisinopril 20 mg Oral tab once daily 3. atorvastatin 20 mg oral tab 1 tab once daily 4. Incruse Ellipta 62.5 mcg/actuation inhalation dsdv 1 puff once daily 5. Breo Ellipta 100-25 mcg/dose inhalation dsdv 1 puff once daily 6. levothyroxine 100 mcg Oral cap 1 cap once daily 7. Metoprolol Tartrate 12.5mg Oral 2 times per day 8. senna 8.6 mg oral cap 2 caps once daily 9. docusate sodium 100 mg Oral cap 1 cap once daily 10. pantoprazole 40 mg oral TbEC 1 tab once daily 11. Vitamin D Oral 1000 unit daily 12. Eliquis 5 mg oral tab 1 tab 2 times per day - PMHx: Hypothyroidism; Atrial Fib; Hypertension; Hypercholesterolemia; COPD; GERD; - PSHx: Appendectomy; - Social history: Smoking status: Patient states former smoker of tobacco. No barriers to communication noted, The patient speaks fluent Moh[place], Speaks appropriately for age. - Family history: Not pertinent. - : The pt / caregiver states he / she is on anticoagulants: Eliquis Home medication list is obtained from the patient. - Exposure Risk Screening:: None identified. Screenin:56 Screening information is obtained from the patient. Fall risk: No risks identified. rs3 Assistance ADL's: requires no assistance with activities of daily living. Abuse/DV Screen: The patient / caregiver reports he/she is: not in a situation that causes fear, pain or injury. Nutritional screening: No deficits noted. Advance Directives: Currently, there is a health care proxy, ANIYAH Valdovinos (Daughter). There is an active DNR order but there is no copy available at this time. home support is adequate. Assessment: 12:19 General: Appears in no apparent distress, Behavior is appropriate for age, cooperative. rs3 Pain: Location: anterior aspect of left upper chest and left breast. Neurological: Level of Consciousness is awake, alert, Oriented to person, place, time. Cardiovascular: Capillary refill < 3 seconds Clubbing of nail beds is absent Heart tones S1 S2 present Rhythm is atrial fibrillation with no ectopy Chest pain is denied. Respiratory: Airway is patent Respiratory effort is even, unlabored, Respiratory pattern is regular, symmetrical, Breath sounds are clear bilaterally. Derm: Skin is pink, warm & dry. 13:55 General: Appears in no apparent distress, denies of chest pain. reports of generalized rs3 weakness. ambulated to bathroom. tolerated well. returned from CT. Tolerated procedure well. resting comfortable. call mack in reach. 14:55 General: Appears in no apparent distress, Behavior is appropriate for age, cooperative, rs3 denies of chest pain/distress. breathes easy. family at bedside. 15:50 General: Appears in no apparent distress, Behavior is appropriate for age, cooperative, rs3 denies of pain/distress. waiting for repeat card mike. family at bedside. 16:50 General: Appears in no apparent distress, denies of pain/distress. requesting food to rs3 eat. ramiro yakov given to her. waiting for repeat Card mike. 17:44 General: Appears in no apparent distress, Behavior is appropriate for age, cooperative, rs3 denies of pain/distress. family at bedside. will continue to monitor. . 18:34 General: Appears in no apparent distress, Behavior is appropriate for age, cooperative, rs3 denies of chest pain/distress. Had eaten sandwich. tolerated well. ambulated in oneal way. tolerated well. breathes easy. 19:04 General: Verbal report given by Kassy Daley RN. Assumed care of patient at this time.. kas2 19:20 General: Appears in no apparent distress, comfortable, Behavior is appropriate for age, kas2 cooperative. Pain: Denies pain. Neurological: Level of Consciousness is awake, alert, Oriented to person, place, time. Cardiovascular: Capillary refill < 3 seconds Clubbing of nail beds is absent Heart tones S1 S2 present Rhythm is atrial fibrillation with no ectopy Chest pain is denied. Respiratory: Airway is patent Respiratory effort is even, unlabored, Respiratory pattern is regular, symmetrical, Breath sounds are clear bilaterally. Derm: Skin is intact, Skin is dry, Skin is pink, warm & dry. Skin temperature is warm. Vital Signs: 11:49 BP 187 / 82 RA Sitting (auto/lg); Pulse 56; Resp 16; Temp 98.6(O); Pulse Ox 100% on rs6 R/A; Weight 101.6 kg (R); Height 5 ft. 7 in. (170.18 cm) (R); Pain 3/10; 12:35 BP 185 / 82 RA Supine (man/lg); rs3 12:53 Pulse 52 MON; Pulse Ox 95% ; rs3 13:53 BP 175 / 93 (auto/); rs3 13:55 Pulse 52 MON; Pulse Ox 94% ; rs3 14:05 BP 164 / 76 (auto/); rs3 14:05 Pulse 52 MON; Pulse Ox 92% ; rs3 14:35 BP 194 / 85 (auto/); rs3 14:35 Pulse 54 MON; Pulse Ox 96% ; rs3 14:50 BP 179 / 81 (auto/); rs3 14:50 Pulse 50 MON; Pulse Ox 92% ; rs3 15:20 BP 164 / 76 (auto/); rs3 15:20 Pulse 50 MON; Pulse Ox 93% ; rs3 15:35 BP 173 / 81 (auto/); rs3 15:35 Pulse 50 MON; Pulse Ox 96% ; rs3 15:50 BP 164 / 75 (auto/); rs3 15:50 Pulse 50 MON; Pulse Ox 92% ; rs3 16:05 BP 155 / 74 (auto/); rs3 16:05 Pulse 50 MON; Pulse Ox 94% ; rs3 16:35 BP 146 / 71 (auto/); rs3 16:35 Pulse 48 MON; Pulse Ox 93% ; rs3 16:50 BP 137 / 72 (auto/); rs3 16:50 Pulse 46 MON; Pulse Ox 94% ; rs3 17:05 BP 153 / 72 (auto/); rs3 17:05 Pulse 52 MON; Pulse Ox 93% ; rs3 17:20 BP 176 / 80 (auto/); rs3 17:20 Pulse 50 MON; Pulse Ox 95% ; rs3 17:35 BP 158 / 74 (auto/); rs3 17:35 Pulse 50 MON; Pulse Ox 95% ; rs3 17:51 BP 144 / 67 (auto/); rs3 17:51 Pulse 66 MON; Pulse Ox 93% ; rs3 18:06 BP 188 / 81 (auto/); rs3 18:06 Pulse 62 MON; Pulse Ox 94% ; rs3 18:21 BP 167 / 72 (auto/); rs3 18:21 Pulse 52 MON; Pulse Ox 94% ; rs3 18:34 Pulse 54 MON; Pulse Ox 94% ; rs3 18:36 BP 152 / 67 (auto/); kas2 18:36 Pulse 58 MON; Pulse Ox 95% ; kas2 18:51 BP 137 / 65 (auto/); kas2 18:51 Pulse 52 MON; Pulse Ox 92% ; kas2 19:06 BP 124 / 53 (auto/); kas2 19:06 Pulse 48 MON; Pulse Ox 94% ; kas2 19:22 BP 128 / 57; Pulse 53; Resp 18; Temp 98.0; Pulse Ox 99% on R/A; Pain 0/10; kas2 11:49 Body Mass Index 35.08 (101.60 kg, 170.18 cm) rs6 Vitals: 11:56 Log In Time: November 09, 2016 at 11:45. [facility] ED Course: 11:48 Patient visited by Pema Priest PCA. rs6 11:48 Catracho Diaz is Private Physician. rs6 11:48 Patient moved to Waiting rs6 11:49 Patient moved to Pre RCE rs6 11:50 Triage Initiated pml 11:56 Patient visited by Ya Aranda,RN. pml 11:57 Patient visited by Ya Aranda,THADDEUS. pml 11:57 Erna Chavira,THADDEUS is Primary Nurse. pml 11:57 Patient moved to 7 pml 11:58 Yuliana Ball MD is Attending Physician. br1 12:08 Patient visited by Yuliana Ball MD. br1 12:36 Basic Metabolic Profile Sent. rs3 12:36 CBC with Diff Sent. rs3 12:36 Cardiac Injury Profile Sent. rs3 12:36 Troponin Sent. rs3 12:42 Patient visited by Erna Chavira RN. rs3 13:09 Chest, 2 View (pa\E\lat) Returned. EDMS 13:29 [facility] Payment Agreement was scanned into [employer] and attached to record. lg 13:33 Patient visited by Erna Chavira RN. rs3 13:51 CT Head Without Contrast Returned. EDMS 13:56 Inserted saline lock: 20 gauge in right antecubital area and blood collected. The rs3 patient tolerated the procedure well. Labs drawn. (by ED staff). 14:06 Patient visited by Erna Chavira RN. rs3 14:35 Patient moved to OBSERVATION mt4 14:36 CT Chest Angio R/O PE Returned. EDMS 18:13 Patient visited by Farrukh Salazar PCA. jlf 18:13 Patient visited by Farrukh Salazar PCA. jlf 18:13 gambling monitor on. Pulse ox on. NIBP on. jlf 18:13 EKG done. (by ED staff). Reviewed by Yuliana Ball MD. jlf 18:56 Patient visited by Yuliana Ball MD. br1 18:59 Wendy Rudolhp RN is Primary Nurse. kas2 19:09 Catracho Diaz is Referral Physician. br1 19:09 Michael Carlson MD is Referral Physician. br1 19:21 The patient / caregiver is instructed regarding the plan of care and ED course. kas2 19:21 Discontinued IV bleeding controlled, pressure dressing applied, No redness/swelling at kas2 site. No procedures done that require assistance. 19:22 Patient visited by Wendy Rudolph RN. [facility] 19:23 Patient visited by Wendy Rudolph RN. [facility] 21:07 EKG-ADULT Returned. EDMS 11/10 11:26 T-Sheet-- Draft Copy was scanned into [employer] and attached to record. 11:27 ECG/EKG was scanned into [employer] and attached to record. gb 11:27 Radiology Report was scanned into [employer] and attached to record. 11/11 08:41 ECG WITH READING ER PHYS Returned. EDMS Administered Medications: 11/09 12:35 Drug: Aspirin 324 mg [aspirin 81 mg chewable tablet (4 tabs)] Route: PO; rs3 12:35 Drug: Metoprolol 12.5 mg [metoprolol tartrate 25 mg tablet (0.5 tabs)] Route: PO; rs3 14:27 Drug: Furosemide 40 mg [furosemide 10 mg/mL injection solution (4 mL)] Route: IVP; rs3 Site: right antecubital; Order Results: Lab Order: Basic Metabolic Profile; SPEC'M 11/09/16 12:33 Test: GLUCOSE, FASTING; Value: 111; Range: 83-110; Abnormal: Above high normal; Units: MG/DL; Status: F Test: BLOOD UREA NITROGEN; Value: 14; Range: 7-18; Units: MG/DL; Status: F Test: CREATININE FOR GFR; Value: 0.80; Range: 0.55-1.02; Units: MG/DL; Status: F Test: GLOMERULAR FILTRATION RATE; Value: > 60.0; Range: >39; Status: F Test: SODIUM LEVEL; Value: 143; Range: 136-145; Units: MEQ/L; Status: F Test: POTASSIUM SERUM; Value: 4.3; Range: 3.5-5.1; Units: MEQ/L; Status: F Test: CHLORIDE LEVEL; Value: 107; Range: 98-107; Units: MEQ/L; Status: F Test: CARBON DIOXIDE LEVEL; Value: 31; Range: 21-32; Units: MEQ/L; Status: F Test: ANION GAP; Value: 5; Range: 8-16; Abnormal: Below low normal; Units: MEQ/L; Status: F Test: CALCIUM LEVEL; Value: 9.0; Range: 8.8-10.2; Units: MG/DL; Status: F Test Note: ; Units are mL/min/1.73 m2 Chronic Kidney Disease Staging per NKF: Stage I & II GFR >=60 Normal to Mildly Decreased Stage III GFR 30-59 Moderately Decreased Stage IV GFR 15-29 Severely Decreased Stage V GFR <15 Very Little GFR Left ESRD GFR <15 on [employer] Lab Order: CBC with Diff; SPEC'M 11/09/16 12:33 Test: WHITE BLOOD COUNT; Value: 6.9; Range: 4.0-10.0; Units: K/mm3; Status: F Test: RED BLOOD COUNT; Value: 4.06; Range: 4.00-5.40; Units: M/mm3; Status: F Test: HEMOGLOBIN; Value: 11.8; Range: 12.0-16.0; Abnormal: Below low normal; Units: g/dl; Status: F Test: HEMATOCRIT; Value: 36.6; Range: 36.0-47.0; Units: %; Status: F Test: MEAN CORPUSCULAR VOLUME; Value: 90.1; Range: 80.0-96.0; Units: fl; Status: F Test: MEAN CORPUSCULAR HEMOGLOBIN; Value: 29.1; Range: 27.0-33.0; Units: pg; Status: F Test: MEAN CORPUSCULAR HGB CONC; Value: 32.3; Range: 32.0-36.5; Units: g/dl; Status: F Test: RED CELL DISTRIBUTION WIDTH; Value: 13.1; Range: 11.5-14.5; Units: %; Status: F Test: PLATELET COUNT, AUTOMATED; Value: 328; Range: 150-450; Units: k/mm3; Status: F Test: NEUTROPHILS %; Value: 62.2; Range: 36.0-66.0; Units: %; Status: F Test: LYMPH %; Value: 26.0; Range: 24.0-44.0; Units: %; Status: F Test: MONO %; Value: 5.9; Range: 0.0-5.0; Abnormal: Above high normal; Units: %; Status: F Test: EOS %; Value: 3.4; Range: 0.0-3.0; Abnormal: Above high normal; Units: %; Status: F Test: BASO %; Value: 0.4; Range: 0.0-1.0; Units: %; Status: F Test: LARGE UNSTAINED CELL %; Value: 2.2; Range: 0.0-4.0; Units: %; Status: F Test: NEUTROPHILS #; Value: 4.3; Range: 1.8-7.7; Units: K/mm3; Status: F Test: LYMPH #; Value: 2.0; Range: 1.5-4.5; Units: K/mm3; Status: F Test: MONO #; Value: 0.4; Range: 0.0-0.8; Units: K/mm3; Status: F Test: EOS #; Value: 0.2; Range: 0.0-0.50; Units: K/mm3; Status: F Test: BASO #; Value: 0.0; Range: 0.0-0.2; Units: K/mm3; Status: F Test: LARGE UNSTAINED CELL #; Value: 0.2; Range: 0.0-0.4; Units: K/mm3; Status: F Lab Order: Cardiac Injury Profile; SPEC'M 11/09/16 12:33 Test: CPK CREATINE PHOSPHOKINASE; Value: 38; Range: 26-192; Units: U/L; Status: F Test: CK-MB VALUE MASS; Value: 1.0; Range: 0.0-3.6; Units: NG/ML; Status: F Test: MB/CK RELATIVE INDEX; Value: 2.63; Range: < OR =4; Status: F Test Note: ; DIAGNOSIS CRITERIA MMB ng/ml Relative Index (RI) NON-AMI < or = 5 N/A CURRAN ZONE > 5 < or = 4 AMI > 5 > 4 Lab Order: Troponin; SPEC'M 11/09/16 12:33 Test: TROPONIN I; Value: < 0.02; Range: < 0.10; Units: NG/ML; Status: F Test Note: ; Troponin I Reference Interval for Synesis LOCI: 99th Percentile= 0.00-0.045 ng/ml Risk Stratification: <= 0.10 ng/ml Decreased Risk for Adverse Clinical Events. 0.10-1.50 ng/ml Increased Risk for Adverse Clinical Events. Evaluation of additional criterion and/or repeat testing in 2-6 hours is suggested to rule out myocardial damage. >= 1.50 ng/ml Indicative of Myocardial Injury. Lab Order: CARDIAC MARKER PANEL; SPEC'M 11/09/16 17:46 Test: CPK CREATINE PHOSPHOKINASE; Value: 52; Range: 26-192; Units: U/L; Status: F Test: CK-MB VALUE MASS; Value: 1.0; Range: 0.0-3.6; Units: NG/ML; Status: F Test: MB/CK RELATIVE INDEX; Value: 1.92; Range: < OR =4; Status: F Test: TROPONIN I; Value: < 0.02; Range: < 0.10; Units: NG/ML; Status: F Test Note: ; DIAGNOSIS CRITERIA MMB ng/ml Relative Index (RI) NON-AMI < or = 5 N/A CURRAN ZONE > 5 < or = 4 AMI > 5 > 4 Radiology Order: Chest, 2 View (pa\E\lat) Test: Chest, 2 View (pa\E\lat) REASON FOR EXAMINATION: Chest Pain; Clinical: Chest pain.; ; Technique: PA and lateral.; ; Comparison: 08/19/2016 .; ; Findings:; Stable cardiomegaly and diffuse chronic interstitial changes are again; appreciated and similar to prior examination. Mild pulmonary venous congestion; cannot be excluded. No acute consolidation, or pneumothorax. Blunting along the; posterior costophrenic angles on lateral radiographs suggest small pleural; effusions. Skeletal structures intact.; ; Impression:; Cannot exclude mild pulmonary venous congestion and small pleural effusions.; ; ; Signed by; Mike Meraz MD 11/09/2016 12:45 P; Radiology Order: EKG-ADULT Test: EKG-ADULT REASON FOR EXAMINATION: Chest Pain; Stationary ECG Study; [facility] - ED; ; Test Date: 2016-11-09; Pat Name: JERONIMO ACE Department:; Room: -; Gender: F Baggagemaster: aura; : 1940 Requested By: YULIANA Patel; Order Number: [id number] Ian MD: Jennifer Ames; Measurements; Intervals [place]; Rate: 56 P: 65; OK: 141 QRS: 47; QRSD: 94 T: 42; QT: 444; QTc: 430; Interpretive Statements; SINUS BRADYCARDIA; DECREASED RATE 08/19/16; Electronically Signed On 11-09-2016 20:16:07 EST by Jennifer Ames; Radiology Order: CT Head Without Contrast Test: CT Head Without Contrast REASON FOR EXAMINATION: htn headache eval for ich; CT HEAD WITHOUT CONTRAST:; ; HISTORY: Headache.; ; Areas of decreased attenuation are present in the periventricular white matter.; This represents small vessel ischemic disease. There is no intraparenchymal; hemorrhage, mass or midline shift. The ventricular system and cortical sulci are; dilated consistent with minimal volume loss. There is no extracerebral; collection. The visualized sinuses are clear.; ; IMPRESSION:; ; 1. Small vessel ischemic disease.; ; 2. Minimal volume loss.; ; ; Signed by; Darryl Levy MD 11/09/2016 01:27 P; Radiology Order: CT Chest Angio R/O PE Test: CT Chest Angio R/O PE REASON FOR EXAMINATION: Chest Pain; Clinical: Acute chest pain.; ; Technique: Axial contrast enhanced images from the thoracic inlet to the upper; abdomen using 100 ml Isovue 370 intravenous contrast material with coronal and; sagittal re-formations.; ; Findings: Satisfactory enhancement of the pulmonary vasculature is achieved and; no filling defects are identified to suggest pulmonary embolus. Lung berry; demonstrate mild emphysematous changes as well as minimal posterior basilar; atelectasis (left greater than right). Cardiomegaly is noted along with findings; to suggest pulmonary vascular congestion.; ; Impression:; No evidence for pulmonary embolus.; Cardiomegaly with findings to suggest mild pulmonary vascular congestion; including minimal posterior basilar atelectasis (left greater than right).; ; ; Signed by; Mike Meraz MD 11/09/2016 02:03 P; Radiology Order: ECG WITH READING ER PHYS Test: ECG WITH READING ER PHYS REASON FOR EXAMINATION: REPEAT EKG \T\ 1750; Stationary ECG Study; [facility] - ED; ; Test Date: 2016-11-09; Pat Name: JERONIMO ACE Department:; Room: -; Gender: F Baggagemaster: norma; : 1940 Requested By: YULIANA Patel; Order Number: [id number] Reading MD: Jennifer Ames; Measurements; Intervals [place]; Rate: 56 P: 62; OK: 134 QRS: 29; QRSD: 94 T: 45; QT: 456; QTc: 443; Interpretive Statements; SINUS BRADYCARDIA; NSTTW ABNORMALITY; SIMILAR 11/09/16 12:24; Electronically Signed On 11-11-2016 8:15:23 EST by Jennifer Ames; Outcome: 19:10 Discharge ordered by Provider. br1 19:21 Discharge Assessment: patient administered narcotics - no. The following High Risk kas2 Discharge criteria are identified: None. Discharged to home ambulatory, with family. Condition: good Condition: stable Condition: improved. CT Study completed. Property :Personal belongings accompany Pt. 19:23 Patient left the ED. kas2 Signatures: Dispatcher [employer] EDMS Tere Paniagua, Reg Reg gb Alena Fung, Reg Reg lg Yuliana Ball MD MD br1 Candie Escobar mt4 Erna ChaviraRN RN rs3 Ya Aranda,RN RN pml Farrukh Salazar, ACADEMIC PROGRAM SPECIALIST ACADEMIC PROGRAM SPECIALIST f Pema Priest, ACADEMIC PROGRAM SPECIALIST ACADEMIC PROGRAM SPECIALIST rs6 Wendy Rudolph,RN RN kas2 Corrections: (The following items were deleted from the chart) 11:57 11:50 Presenting complaint: Patient states: reports high blood pressure this morning pml with home machine. reports hx of hypertension and compliance with meds. denies any other associated symptoms pml Chart Complete MTDD
== END 2016-11-09 19:23 | disposition home or self-care (01) ==
LOC: M ED 11:45
DX: R07.9 Chest pain, unspecified (principal); I10 Essential (primary) hypertension; E03.9 Hypothyroidism, unspecified; I48.91 Unspecified atrial fibrillation; E78.00 Pure hypercholesterolemia, unspecified; J44.9 Chronic obstructive pulmonary disease, unspecified; K21.9 Gastro-esophageal reflux disease without esophagitis; Z87.891 Personal history of nicotine dependence; Z79.01 Long term (current) use of anticoagulants; Z79.899 Other long term (current) drug therapy
CPT/HCPCS: 36415; 70450; 71020; 71275; 80048; 82550; 82553; 84484; 85025; 93005; 93041; 96374; 99285; J1940; Q9967

== ENCOUNTER → 2016-11-27 | Outpatient (REF) | payer OTHER, MEDICAID ==
[2016-11-27 13:49] LABS: ANION GAP 9 MEQ/L (8-16); BLOOD UREA NITROGEN 19 MG/DL (7-18); CALCIUM LEVEL 9.1 MG/DL (8.8-10.2); CARBON DIOXIDE LEVEL 29 MEQ/L (21-32); CHLORIDE LEVEL 103 MEQ/L (98-107); GLOMERULAR FILTRATION RATE > 60.0 (>39); GLUCOSE, FASTING 97 MG/DL (83-110); POTASSIUM SERUM 4.7 MEQ/L (3.5-5.1); SODIUM LEVEL 141 MEQ/L (136-145)
== END ==
LOC: M LABDRWAD 12:43
PROVIDERS: ATTEND Internal Medicine Cardiovascular Disease
DX: I10 Essential (primary) hypertension (principal); I48.91 Unspecified atrial fibrillation

== ENCOUNTER → 2017-01-01 | Outpatient (REF) | payer OTHER, MEDICAID ==
[~2017-01-01] MED LIST changes: -COLA100C PO; +COLA100C3 PO
[2017-01-01 13:24] LABS: MEAN CORPUSCULAR HEMOGLOBIN 28.3 pg (27.0-33.0); MEAN CORPUSCULAR HGB CONC 32.2 g/dl (32.0-36.5); MEAN CORPUSCULAR VOLUME 88.1 fl (80.0-96.0); RED CELL DISTRIBUTION WIDTH 13.5 % (11.5-14.5); WHITE BLOOD COUNT 8.8 K/mm3 (4.0-10.0)
[2017-01-01 13:33] LABS: INR 1.01
[2017-01-01 13:49] LABS: ALBUMIN 3.4 GM/DL (3.2-5.2); ALBUMIN/GLOBULIN RATIO 1.13 (1.00-1.93); ALKALINE PHOSPHATASE 84 U/L (45-117); ALT/SGPT 17 U/L (12-78); ANION GAP 7 MEQ/L (8-16); AST/SGOT 17 U/L (15-37); BILIRUBIN,TOTAL 0.5 MG/DL (0.2-1.0); BLOOD UREA NITROGEN 11 MG/DL (7-18); CALCIUM LEVEL 8.9 MG/DL (8.8-10.2); CARBON DIOXIDE LEVEL 31 MEQ/L (21-32); CHLORIDE LEVEL 102 MEQ/L (98-107); CREATININE FOR GFR 0.86 MG/DL (0.55-1.02); GLOMERULAR FILTRATION RATE > 60.0 (>39); GLUCOSE, FASTING 104 MG/DL (83-110); POTASSIUM SERUM 3.6 MEQ/L (3.5-5.1); SODIUM LEVEL 140 MEQ/L (136-145); TOTAL PROTEIN 6.4 GM/DL (6.4-8.2)
[2017-01-01 13:54] LABS: CARCINOEMBRYONIC ANTIGEN 13.2 NG/ML (<2.5)
== END ==
LOC: M LAB REF 12:49
PROVIDERS: ATTEND Internal Medicine Gastroenterology
DX: K44.9 Diaphragmatic hernia without obstruction or gangrene (principal); K22.2 Esophageal obstruction; C20 Malignant neoplasm of rectum; K64.1 Second degree hemorrhoids; K57.30 Diverticulosis of large intestine without perforation or abscess without bleeding; D12.3 Benign neoplasm of transverse colon; D12.2 Benign neoplasm of ascending colon; K63.89 Other specified diseases of intestine; D12.4 Benign neoplasm of descending colon; C18.6 Malignant neoplasm of descending colon; D12.5 Benign neoplasm of sigmoid colon; Q45.8 Other specified congenital malformations of digestive system

== ENCOUNTER → 2017-01-15 | Outpatient (REF) | payer OTHER, MEDICAID ==
[2017-01-15 12:57] LABS: BLOOD UREA NITROGEN 13 MG/DL (7-18); CREATININE FOR GFR 0.82 MG/DL (0.55-1.02); GLOMERULAR FILTRATION RATE > 60.0 (>39)
== END ==
LOC: M LAB REF 12:33
PROVIDERS: ATTEND Surgery
DX: C20 Malignant neoplasm of rectum (principal)

== ENCOUNTER → 2017-03-08 | Outpatient (CLI) | payer OTHER, MEDICAID | LOC: M ADAMS 09:47 | PROVIDERS: ATTEND Family Medicine | DX: R53.1 Weakness (principal) ==

== ENCOUNTER → 2017-03-08 | Outpatient (CLI) | payer OTHER, MEDICAID ==
[~2017-03-08] MED LIST changes: -COLA100C3 PO; +COLA100C5 PO; +LEVO500T3 PO; -LEVO500T32 PO; +METO25TA4 PO; -METO25TAB PO
[2017-03-08 19:35] LABS: BASO # 0.1 K/mm3 (0.0-0.2); BASO % 0.7 % (0.0-1.0); EOS # 0.2 K/mm3 (0.0-0.50); EOS % 2.3 % (0.0-3.0); LARGE UNSTAINED CELL # 0.2 K/mm3 (0.0-0.4); LARGE UNSTAINED CELL % 2.6 % (0.0-4.0); LYMPH # 1.9 K/mm3 (1.5-4.5); LYMPH % 24.9 % (24.0-44.0); MEAN CORPUSCULAR HEMOGLOBIN 27.8 pg (27.0-33.0); MEAN CORPUSCULAR HGB CONC 31.3 g/dl (32.0-36.5); MEAN CORPUSCULAR VOLUME 88.8 fl (80.0-96.0); MONO # 0.6 K/mm3 (0.0-0.8); MONO % 8.4 % (0.0-5.0); NEUTROPHILS # 4.6 K/mm3 (1.8-7.7); PLATELET COUNT, AUTOMATED 823 k/mm3 (150-450); RED CELL DISTRIBUTION WIDTH 14.1 % (11.5-14.5); WHITE BLOOD COUNT 7.6 K/mm3 (4.0-10.0)
[2017-03-08 20:25] LABS: ALBUMIN/GLOBULIN RATIO 0.88 (1.00-1.93); BILIRUBIN,TOTAL 0.2 MG/DL (0.2-1.0); CALCIUM LEVEL 8.8 MG/DL (8.8-10.2); GLOMERULAR FILTRATION RATE 57.1 (>39); POTASSIUM SERUM 3.8 MEQ/L (3.5-5.1); TOTAL PROTEIN 6.4 GM/DL (6.4-8.2)
== END ==
LOC: M ADAMS 09:43
PROVIDERS: ATTEND Family Medicine
DX: R53.1 Weakness (principal)
CPT/HCPCS: 36415; 80053; 85025; G0463

== ENCOUNTER → 2017-03-17 | Outpatient (REF) | payer OTHER, MEDICAID ==
[2017-03-17 19:57] LABS: MEAN CORPUSCULAR HEMOGLOBIN 27.5 pg (27.0-33.0); MEAN CORPUSCULAR VOLUME 88.8 fl (80.0-96.0); RED CELL DISTRIBUTION WIDTH 14.2 % (11.5-14.5); RETIC HEMOGLOBIN CONTENT CHr 26.3 PG (24-36); RETICULOCYTE % 2.4 % (0.5-1.5); WHITE BLOOD COUNT 6.6 K/mm3 (4.0-10.0)
[2017-03-17 20:11] LABS: ANION GAP 8 MEQ/L (8-16); BLOOD UREA NITROGEN 11 MG/DL (7-18); CALCIUM LEVEL 8.4 MG/DL (8.8-10.2); CARBON DIOXIDE LEVEL 27 MEQ/L (21-32); CHLORIDE LEVEL 106 MEQ/L (98-107); CREATININE FOR GFR 0.75 MG/DL (0.55-1.02); FERRITIN 22 NG/ML (8-252); GLOMERULAR FILTRATION RATE > 60.0 (>39); GLUCOSE, FASTING 99 MG/DL (83-110); PERCENT SATURATION 5.1 % (13.2-37.4); POTASSIUM SERUM 4.1 MEQ/L (3.5-5.1); SODIUM LEVEL 141 MEQ/L (136-145); TOTAL IRON BINDING CAPACITY 352 UG/DL (250-450)
== END ==
LOC: M SFHCADAM 14:26
PROVIDERS: ATTEND Family Medicine
DX: D64.9 Anemia, unspecified (principal); R60.0 Localized edema
CPT/HCPCS: 80048; 82728; 83550; 85027; 85046; G0463

== ENCOUNTER → 2017-04-01 | Outpatient (REF) | payer OTHER | LOC: M SFHCADAM 12:45 | PROVIDERS: ATTEND Family Medicine | DX: R30.0 Dysuria (principal) ==

== ENCOUNTER → 2017-05-13 | Outpatient (REF) | payer OTHER, MEDICAID ==
[2017-05-13 19:52] LABS: MEAN CORPUSCULAR HGB CONC 31.2 g/dl (32.0-36.5); MEAN CORPUSCULAR VOLUME 86.5 fl (80.0-96.0); RETIC HEMOGLOBIN CONTENT CHr 29.3 PG (24-36); RETICULOCYTE % 2.4 % (0.5-1.5); WHITE BLOOD COUNT 6.9 K/mm3 (4.0-10.0)
[2017-05-13 19:59] LABS: ANION GAP 10 MEQ/L (8-16); BLOOD UREA NITROGEN 17 MG/DL (7-18); CARBON DIOXIDE LEVEL 26 MEQ/L (21-32); CHLORIDE LEVEL 108 MEQ/L (98-107); CREATININE FOR GFR 0.75 MG/DL (0.55-1.02); FERRITIN 14 NG/ML (8-252); GLOMERULAR FILTRATION RATE > 60.0 (>39); GLUCOSE, FASTING 88 MG/DL (83-110); PERCENT SATURATION 7.5 % (13.2-45.0); POTASSIUM SERUM 4.3 MEQ/L (3.5-5.1); SODIUM LEVEL 144 MEQ/L (136-145); TOTAL IRON BINDING CAPACITY 386 UG/DL (250-450)
== END ==
LOC: M SFHCADAM 11:48
PROVIDERS: ATTEND Family Medicine
DX: D50.8 Other iron deficiency anemias (principal); I11.9 Hypertensive heart disease without heart failure

== ENCOUNTER → 2017-08-24 | Outpatient (REF) | payer OTHER, MEDICAID | LOC: M LABDRWAD 13:49 | PROVIDERS: ATTEND Surgery | DX: D50.8 Other iron deficiency anemias (principal); I11.9 Hypertensive heart disease without heart failure; Z85.048 Personal history of other malignant neoplasm of rectum, rectosigmoid junction, and anus ==

== ENCOUNTER → 2017-08-24 | Outpatient (REF) | payer OTHER, MEDICAID ==
[2017-08-24 12:33] LABS: MEAN CORPUSCULAR HEMOGLOBIN 27.5 pg (27.0-33.0); MEAN CORPUSCULAR HGB CONC 31.3 g/dl (32.0-36.5); MEAN CORPUSCULAR VOLUME 87.8 fl (80.0-96.0); PLATELET COUNT, AUTOMATED 340 10^3/uL (150-450); RED CELL DISTRIBUTION WIDTH 15.6 % (11.5-14.5); WHITE BLOOD COUNT 7.1 10^3/uL (4.0-10.0)
[2017-08-24 13:12] LABS: ALBUMIN 3.7 GM/DL (3.2-5.2); ALBUMIN/GLOBULIN RATIO 1.16 (1.00-1.93); ALKALINE PHOSPHATASE 83 U/L (45-117); ALT/SGPT 17 U/L (12-78); ANION GAP 7 MEQ/L (8-16); AST/SGOT 14 U/L (7-37); BILIRUBIN,TOTAL 0.5 MG/DL (0.2-1.0); BLOOD UREA NITROGEN 23 MG/DL (7-18); CALCIUM LEVEL 9.2 MG/DL (8.8-10.2); CARBON DIOXIDE LEVEL 29 MEQ/L (21-32); CHLORIDE LEVEL 105 MEQ/L (98-107); CREATININE FOR GFR 0.75 MG/DL (0.55-1.02); GLOMERULAR FILTRATION RATE > 60.0 (>39); GLUCOSE, FASTING 92 MG/DL (83-110); POTASSIUM SERUM 4.2 MEQ/L (3.5-5.1); SODIUM LEVEL 141 MEQ/L (136-145); TOTAL PROTEIN 6.9 GM/DL (6.4-8.2)
== END ==
LOC: M SFHCADAM 08:25
PROVIDERS: ATTEND Physician Assistant
DX: D50.8 Other iron deficiency anemias (principal); I11.9 Hypertensive heart disease without heart failure

== ENCOUNTER → 2018-01-06 | Outpatient (REF) | payer OTHER, MEDICAID ==
[2018-01-06 19:28] LABS: BASO % 0.3 % (0.0-1.0); EOS # 0.1 10^3/uL (0.0-0.50); EOS % 0.9 % (0.0-3.0); HEMATOCRIT 38.6 % (36.0-47.0); HEMOGLOBIN 12.2 g/dl (12.0-15.5); IMMATURE GRANULOCYTE % 0.7 % (0-3.0); LYMPH # 3.1 10^3/uL (1.5-4.5); LYMPH % 29.7 % (24.0-44.0); MEAN CORPUSCULAR HEMOGLOBIN 29.2 pg (27.0-33.0); MEAN CORPUSCULAR HGB CONC 31.6 g/dl (32.0-36.5); MEAN CORPUSCULAR VOLUME 92.3 fl (80.0-96.0); MONO # 1.1 10^3/uL (0.0-0.8); NEUTROPHILS # 5.9 10^3/uL (1.8-7.7); NEUTROPHILS % 57.4 % (36.0-66.0); PLATELET COUNT, AUTOMATED 461 10^3/uL (150-450); RED BLOOD COUNT 4.18 10^6/uL (4.00-5.40); RED CELL DISTRIBUTION WIDTH 13.9 % (11.5-14.5); WHITE BLOOD COUNT 10.3 10^3/uL (4.0-10.0)
[2018-01-06 19:38] LABS: ALBUMIN 3.7 GM/DL (3.2-5.2); ALBUMIN/GLOBULIN RATIO 1.09 (1.00-1.93); ALKALINE PHOSPHATASE 89 U/L (45-117); ALT/SGPT 26 U/L (12-78); ANION GAP 8 MEQ/L (8-16); AST/SGOT 16 U/L (7-37); BILIRUBIN,TOTAL 0.4 MG/DL (0.2-1.0); BLOOD UREA NITROGEN 18 MG/DL (7-18); CARBON DIOXIDE LEVEL 30 MEQ/L (21-32); CHLORIDE LEVEL 106 MEQ/L (98-107); CREATININE FOR GFR 0.85 MG/DL (0.55-1.30); GLOMERULAR FILTRATION RATE > 60.0 (>39); GLUCOSE, FASTING 101 MG/DL (70-100); POTASSIUM SERUM 4.1 MEQ/L (3.5-5.1); SODIUM LEVEL 144 MEQ/L (136-145); TOTAL PROTEIN 7.1 GM/DL (6.4-8.2)
== END ==
LOC: M SFHCADAM 13:24
DX: J44.1 Chronic obstructive pulmonary disease with (acute) exacerbation (principal)
CPT/HCPCS: 80053

== ENCOUNTER → 2018-01-06 | Outpatient (CLI) | payer OTHER, MEDICAID | LOC: M ADAMS 13:33 | DX: J44.1 Chronic obstructive pulmonary disease with (acute) exacerbation (principal); I51.7 Cardiomegaly | CPT/HCPCS: 71046; 80053 ==

== ENCOUNTER 2018-04-14 10:32 | Inpatient (IN) | payer OTHER, MEDICAID ==
[2018-04-14] MEDS ORDERED: ALBUTEROL SULFATE 2.5 MG/0.5 ML INH NEB SOLN INH (12:00)
[2018-04-14 12:02] LABS: HEMATOCRIT 36.8 % (36.0-47.0); HEMOGLOBIN 11.8 g/dl (12.0-15.5); MEAN CORPUSCULAR HEMOGLOBIN 28.9 pg (27.0-33.0); MEAN CORPUSCULAR HGB CONC 32.1 g/dl (32.0-36.5); MEAN CORPUSCULAR VOLUME 90.2 fl (80.0-96.0); PLATELET COUNT, AUTOMATED 297 10^3/uL (150-450); RED BLOOD COUNT 4.08 10^6/uL (4.00-5.40); RED CELL DISTRIBUTION WIDTH 13.4 % (11.5-14.5); WHITE BLOOD COUNT 7.5 10^3/uL (4.0-10.0)
[2018-04-14 12:12] LABS: INR 1.31; PARTIAL THROMBOPLASTIN TIME 35.5 SECONDS (25.4-37.6); PROTHROMBIN TIME 16.4 SECONDS (12.1-14.4)
[2018-04-14 12:35] LABS: ALBUMIN 3.6 GM/DL (3.2-5.2); ALKALINE PHOSPHATASE 74 U/L (45-117); ALT/SGPT 21 U/L (12-78); ANION GAP 6 MEQ/L (8-16); AST/SGOT 15 U/L (7-37); BILIRUBIN,TOTAL 0.7 MG/DL (0.2-1.0); BLOOD UREA NITROGEN 14 MG/DL (7-18); CALCIUM LEVEL 8.9 MG/DL (8.8-10.2); CARBON DIOXIDE LEVEL 29 MEQ/L (21-32); CHLORIDE LEVEL 107 MEQ/L (98-107); CREATININE FOR GFR 0.94 MG/DL (0.55-1.30); FREE T4 1.33 NG/DL (0.76-1.46); GLOMERULAR FILTRATION RATE > 60.0 (>39); GLUCOSE, FASTING 102 MG/DL (70-100); NT-PRO BNP 4693 PG/ML (<450); POTASSIUM SERUM 4.3 MEQ/L (3.5-5.1); SODIUM LEVEL 142 MEQ/L (136-145); TOTAL PROTEIN 7.2 GM/DL (6.4-8.2)
[2018-04-14] MEDS: LEVALBUTEROL 1.25 MG/0.5 ML CONCENTRATE NEB INH ×3 (12:36→19:40)
[2018-04-14] MEDS: METOPROLOL TART 25 MG TABLET PO ×2 (12:49→20:23)
[2018-04-14 16:27] LABS: CK-MB VALUE MASS 1.2 NG/ML (<3.6); CPK CREATINE PHOSPHOKINASE 62 U/L (26-192); MB/CK RELATIVE INDEX 1.93 (< OR =4); TROPONIN I < 0.02 NG/ML (< 0.10)
[2018-04-14] MEDS: FUROSEMIDE 40 MG/4 ML VIAL (J1940) IV ×2 (18:34→23:38)
[2018-04-14] MEDS: APIXABAN 5 MG TAB (ELIQUIS) PO (20:23)
[2018-04-14 23:59] LABS: CPK CREATINE PHOSPHOKINASE 75 U/L (26-192); TROPONIN I < 0.02 NG/ML (< 0.10)
[2018-04-15] LABS: CK-MB VALUE MASS 1.1 NG/ML (<3.6); MB/CK RELATIVE INDEX 1.46 (< OR =4)
[2018-04-15] MEDS: LEVOTHYROXINE 100MCG TABLET (0.1MG) PO (06:15)
[2018-04-15] MEDS: FUROSEMIDE 40 MG/4 ML VIAL (J1940) IV ×3 (06:15→18:03)
[2018-04-15 07:56] LABS: HEMATOCRIT 41.2 % (36.0-47.0); HEMOGLOBIN 13.3 g/dl (12.0-15.5); MEAN CORPUSCULAR HGB CONC 32.3 g/dl (32.0-36.5); MEAN CORPUSCULAR VOLUME 89.8 fl (80.0-96.0); PLATELET COUNT, AUTOMATED 331 10^3/uL (150-450); RED BLOOD COUNT 4.59 10^6/uL (4.00-5.40); RED CELL DISTRIBUTION WIDTH 13.6 % (11.5-14.5); WHITE BLOOD COUNT 9.3 10^3/uL (4.0-10.0)
[2018-04-15] MEDS: LEVALBUTEROL 1.25 MG/0.5 ML CONCENTRATE NEB INH ×4 (08:02→19:54)
[2018-04-15] MEDS: FLECAINIDE 50MG TABLET PO (08:13)
[2018-04-15 08:17] LABS: ANION GAP 9 MEQ/L (8-16); BLOOD UREA NITROGEN 18 MG/DL (7-18); CALCIUM LEVEL 9.1 MG/DL (8.8-10.2); CARBON DIOXIDE LEVEL 29 MEQ/L (21-32); CHLORIDE LEVEL 104 MEQ/L (98-107); CPK CREATINE PHOSPHOKINASE 80 U/L (26-192); CREATININE FOR GFR 0.98 MG/DL (0.55-1.30); GLOMERULAR FILTRATION RATE 58.3 (>39); GLUCOSE, FASTING 102 MG/DL (70-100); MAGNESIUM LEVEL 1.8 MG/DL (1.8-2.4); POTASSIUM SERUM 3.9 MEQ/L (3.5-5.1); SODIUM LEVEL 142 MEQ/L (136-145); TROPONIN I < 0.02 NG/ML (< 0.10)
[2018-04-15 08:18] LABS: CK-MB VALUE MASS 1.4 NG/ML (<3.6); MB/CK RELATIVE INDEX 1.75 (< OR =4)
[2018-04-15] MEDS: PANTOPRAZOLE 40MG TAB (PROTONIX) PO (08:40)
[2018-04-15] MEDS: METOPROLOL SUCC *XL* 25MG TAB (TopROL *XL*) PO (08:40)
[2018-04-15] MEDS: APIXABAN 5 MG TAB (ELIQUIS) PO ×2 (08:40→20:05)
[2018-04-15] MEDS: SENOKOT S TAB PO (20:05)
[2018-04-15] MEDS: MIRALAX *UNIT DOSE* 17GM PACKET PO (20:05)
[2018-04-15] MEDS: ATORVASTATIN 20 MG TAB PO (20:05)
[2018-04-16 04:58] LABS: HEMATOCRIT 40.2 % (36.0-47.0); HEMOGLOBIN 12.8 g/dl (12.0-15.5); MEAN CORPUSCULAR HEMOGLOBIN 28.1 pg (27.0-33.0); MEAN CORPUSCULAR HGB CONC 31.8 g/dl (32.0-36.5); MEAN CORPUSCULAR VOLUME 88.4 fl (80.0-96.0); PLATELET COUNT, AUTOMATED 323 10^3/uL (150-450); RED BLOOD COUNT 4.55 10^6/uL (4.00-5.40); RED CELL DISTRIBUTION WIDTH 13.5 % (11.5-14.5); WHITE BLOOD COUNT 7.9 10^3/uL (4.0-10.0)
[2018-04-16 05:11] LABS: ANION GAP 8 MEQ/L (8-16); BLOOD UREA NITROGEN 24 MG/DL (7-18); CALCIUM LEVEL 8.9 MG/DL (8.8-10.2); CARBON DIOXIDE LEVEL 33 MEQ/L (21-32); CHLORIDE LEVEL 100 MEQ/L (98-107); CREATININE FOR GFR 1.26 MG/DL (0.55-1.30); GLOMERULAR FILTRATION RATE 43.6 (>39); GLUCOSE, FASTING 113 MG/DL (70-100); MAGNESIUM LEVEL 1.6 MG/DL (1.8-2.4); POTASSIUM SERUM 3.2 MEQ/L (3.5-5.1); SODIUM LEVEL 141 MEQ/L (136-145)
[2018-04-16] MEDS: MAG SULF 1GM/100ML (MAG RUN) 1 GM in APPROPRIATE DILUENT 1 EA IV (06:28)
[2018-04-16] MEDS: LEVOTHYROXINE 100MCG TABLET (0.1MG) PO (06:28)
[2018-04-16] MEDS: POTASSIUM CHLORIDE 10 MEQ SR TABLET PO ×2 (06:28→12:41)
[2018-04-16] MEDS: FUROSEMIDE 40 MG/4 ML VIAL (J1940) IV ×3 (06:28→12:40)
[2018-04-16] MEDS: LEVALBUTEROL 1.25 MG/0.5 ML CONCENTRATE NEB INH ×4 (08:13→20:12)
[2018-04-16] MEDS: SENOKOT S TAB PO ×2 (09:46→20:36)
[2018-04-16] MEDS: APIXABAN 5 MG TAB (ELIQUIS) PO ×2 (09:46→20:36)
[2018-04-16] MEDS: METOPROLOL SUCC *XL* 25MG TAB (TopROL *XL*) PO (09:46)
[2018-04-16] MEDS: PANTOPRAZOLE 40MG TAB (PROTONIX) PO (09:46)
[2018-04-16] MEDS: MIRALAX *UNIT DOSE* 17GM PACKET PO ×2 (09:46→20:36)
[2018-04-16 10:15] LABS: NT-PRO BNP 3051 PG/ML (<450)
[2018-04-16 13:09] LABS: MAGNESIUM LEVEL 2.2 MG/DL (1.8-2.4)
[2018-04-16 13:09] LABS: POTASSIUM SERUM 3.7 MEQ/L (3.5-5.1)
[2018-04-16] MEDS: FLECAINIDE 50MG TABLET PO ×2 (15:37→18:48)
[2018-04-16] MEDS: ATORVASTATIN 20 MG TAB PO (20:36)
[2018-04-17] MEDS: LEVOTHYROXINE 100MCG TABLET (0.1MG) PO (05:42)
[2018-04-17 06:00] LABS: HEMATOCRIT 39.3 % (36.0-47.0); HEMOGLOBIN 12.4 g/dl (12.0-15.5); MEAN CORPUSCULAR HEMOGLOBIN 28.4 pg (27.0-33.0); MEAN CORPUSCULAR HGB CONC 31.6 g/dl (32.0-36.5); MEAN CORPUSCULAR VOLUME 89.9 fl (80.0-96.0); PLATELET COUNT, AUTOMATED 309 10^3/uL (150-450); RED BLOOD COUNT 4.37 10^6/uL (4.00-5.40); RED CELL DISTRIBUTION WIDTH 13.5 % (11.5-14.5); WHITE BLOOD COUNT 7.5 10^3/uL (4.0-10.0)
[2018-04-17 06:24] LABS: ANION GAP 7 MEQ/L (8-16); BLOOD UREA NITROGEN 28 MG/DL (7-18); CALCIUM LEVEL 8.9 MG/DL (8.8-10.2); CARBON DIOXIDE LEVEL 32 MEQ/L (21-32); CHLORIDE LEVEL 103 MEQ/L (98-107); CREATININE FOR GFR 1.15 MG/DL (0.55-1.30); GLOMERULAR FILTRATION RATE 48.5 (>39); GLUCOSE, FASTING 101 MG/DL (70-100); POTASSIUM SERUM 4.1 MEQ/L (3.5-5.1); SODIUM LEVEL 142 MEQ/L (136-145)
[2018-04-17] MEDS: LEVALBUTEROL 1.25 MG/0.5 ML CONCENTRATE NEB INH (08:03)
[2018-04-17] MEDS: MIRALAX *UNIT DOSE* 17GM PACKET PO (09:00)
[2018-04-17] MEDS: SENOKOT S TAB PO (09:00)
[2018-04-17] MEDS: METOPROLOL SUCC *XL* 25MG TAB (TopROL *XL*) PO (09:01)
[2018-04-17] MEDS: APIXABAN 5 MG TAB (ELIQUIS) PO (09:02)
[2018-04-17] MEDS: PANTOPRAZOLE 40MG TAB (PROTONIX) PO (09:02)
== END 2018-04-17 13:30 | disposition home or self-care (01) | DRG 308 ==
LOC: M MSPAV 04-16 14:02 → M ICU 10:32
DX: I48.0 Paroxysmal atrial fibrillation (principal); I50.31 Acute diastolic (congestive) heart failure; J44.9 Chronic obstructive pulmonary disease, unspecified; I11.0 Hypertensive heart disease with heart failure; E03.9 Hypothyroidism, unspecified; E78.5 Hyperlipidemia, unspecified; G25.81 Restless legs syndrome; E55.9 Vitamin D deficiency, unspecified; Z85.038 Personal history of other malignant neoplasm of large intestine; Z79.899 Other long term (current) drug therapy; Z79.01 Long term (current) use of anticoagulants; Z87.891 Personal history of nicotine dependence

== ENCOUNTER → 2018-05-09 | Outpatient (REF) | payer OTHER, MEDICAID ==
[2018-05-09 12:37] LABS: ANION GAP 8 MEQ/L (8-16); BLOOD UREA NITROGEN 21 MG/DL (7-18); CALCIUM LEVEL 9.3 MG/DL (8.8-10.2); CARBON DIOXIDE LEVEL 33 MEQ/L (21-32); CHLORIDE LEVEL 101 MEQ/L (98-107); CREATININE FOR GFR 1.05 MG/DL (0.55-1.30); GLOMERULAR FILTRATION RATE 53.8 (>39); GLUCOSE, FASTING 94 MG/DL (70-100); POTASSIUM SERUM 4.4 MEQ/L (3.5-5.1); SODIUM LEVEL 142 MEQ/L (136-145)
== END ==
LOC: M SFHCADAM 07:54
DX: I11.9 Hypertensive heart disease without heart failure (principal)
CPT/HCPCS: 80048

== ENCOUNTER → 2018-07-04 | Outpatient (CLI) | payer OTHER, MEDICAID ==
[2018-07-04 13:14] LABS: BASO % 0.4 % (0.0-1.0); EOS # 0.1 10^3/uL (0.0-0.50); EOS % 1.8 % (0.0-3.0); HEMATOCRIT 37.8 % (36.0-47.0); HEMOGLOBIN 12.1 g/dl (12.0-15.5); IMMATURE GRANULOCYTE % 0.4 % (0-3.0); LYMPH # 1.9 10^3/uL (1.5-4.5); LYMPH % 27.1 % (24.0-44.0); MEAN CORPUSCULAR HEMOGLOBIN 28.7 pg (27.0-33.0); MEAN CORPUSCULAR VOLUME 89.6 fl (80.0-96.0); MONO # 0.6 10^3/uL (0.0-0.8); MONO % 7.9 % (0.0-5.0); NEUTROPHILS # 4.4 10^3/uL (1.8-7.7); NEUTROPHILS % 62.4 % (36.0-66.0); PLATELET COUNT, AUTOMATED 324 10^3/uL (150-450); RED BLOOD COUNT 4.22 10^6/uL (4.00-5.40); RED CELL DISTRIBUTION WIDTH 15.9 % (11.5-14.5); WHITE BLOOD COUNT 7.1 10^3/uL (4.0-10.0)
[2018-07-04 13:50] LABS: ALBUMIN 3.5 GM/DL (3.2-5.2); ALBUMIN/GLOBULIN RATIO 1.06 (1.00-1.93); ALKALINE PHOSPHATASE 87 U/L (45-117); ALT/SGPT 19 U/L (12-78); ANION GAP 10 MEQ/L (8-16); AST/SGOT 16 U/L (7-37); BILIRUBIN,TOTAL 0.7 MG/DL (0.2-1.0); BLOOD UREA NITROGEN 13 MG/DL (7-18); CALCIUM LEVEL 8.9 MG/DL (8.8-10.2); CARBON DIOXIDE LEVEL 30 MEQ/L (21-32); CHLORIDE LEVEL 105 MEQ/L (98-107); CREATININE FOR GFR 0.81 MG/DL (0.55-1.30); GLOMERULAR FILTRATION RATE > 60.0 (>39); GLUCOSE, FASTING 87 MG/DL (70-100); LIPASE 118 U/L (73-393); POTASSIUM SERUM 3.8 MEQ/L (3.5-5.1); SODIUM LEVEL 145 MEQ/L (136-145); TOTAL PROTEIN 6.8 GM/DL (6.4-8.2)
== END ==
LOC: M ADAMS 10:18
DX: R10.13 Epigastric pain (principal)
CPT/HCPCS: 83690

== ENCOUNTER 2018-08-17 09:18 | Day surgery (SDC) | payer OTHER, MEDICAID ==
[~2018-08-17 09:18] MED LIST changes: +ACETAMINOPHEN 325 MG TAB PO; -ALBU17IN INH; -ASPI325T PO; -ATOR1TAB21 PO; -BREO1INH INH; -COLA100C5 PO; -ELIQ5TAB PO; -INCR1INH INH; -LEVO500T3 PO; -LISI-538 PO; -METO25TA4 PO; -PANT40TA2 PO; +PHENYLEPHRINE HCL 10 % OPHTH. SOL 5ML OD; +PROPARACAINE 0.5% OPHTH SOL 15ML OD; -SENN1TAB2 PO; -SYNT100T PO; -VITA100066 PO
[2018-08-17] MEDS: TROPICAMIDE 1% OPHTH SOLN 2ML OD (10:11)
[2018-08-17] MEDS: PHENYLEPHRINE 2.5% OPHTH SOL 2ML OD (10:11)
[2018-08-17] MEDS: CYCLOPENTOLATE 2% OPHTH SOLN 2ML BTL OD (10:11)
[2018-08-17] MEDS: OFLOXACIN 0.3 % (OCUFLOX) OPTH SOL 5ML OD (10:12)
[2018-08-17] MEDS: LIDOCAINE 3.5 % 1ML OPHTH TOPICAL GEL OU (10:12)
[2018-08-17] MEDS: HEALON DUET PRO(HEALON 10MG/ML 0.55ML & HEALON ENDOCOAT 30MG/ML 0.85ML) As Ordered (11:51)
[2018-08-17] MEDS: CEFUROXIME 1MG/0.1ML INTRACAMERAL INJ As Ordered (11:51)
[2018-08-17] MEDS: LIDOCAINE 1% SDV 5 ML VIAL As Ordered (11:51)
[2018-08-17] MEDS: BALANCED SALT IRRIGATION SOLUTION 500ML BAG (FOR OR EYE MACHINE) As Ordered (11:51)
[2018-08-17] MEDS: POVIDONE-IODINE 5% OPHTH PREP SOL 30ML As Ordered (11:51)
[2018-08-17] MEDS ORDERED: TRIMETHOBENZAMIDE 300 MG CAP PO (12:30)
[2018-08-17] MEDS ORDERED: KETOROLAC 0.5% OPHTH SOLN OD (12:30)
[2018-08-17] MEDS ORDERED: AcetaZOLAMIDE 500 MG ER CAP PO (12:30)
[2018-08-17] MEDS ORDERED: ONDANSETRON 4MG/2ML VIAL (J2405) IV (13:00)
[2018-08-17] MEDS ORDERED: LR 1,000 ML IV (13:00)
[2018-08-17] MEDS ORDERED: ACETAMINOPHEN TAB 650MG DOSE (2X325MG) PO (13:00)
== END 2018-08-17 12:45 | disposition home or self-care (01) ==
LOC: M SDC 09:18
DX: H25.11 Age-related nuclear cataract, right eye (principal); J44.9 Chronic obstructive pulmonary disease, unspecified; I10 Essential (primary) hypertension; E03.9 Hypothyroidism, unspecified; I48.91 Unspecified atrial fibrillation; Z79.01 Long term (current) use of anticoagulants; E78.5 Hyperlipidemia, unspecified; Z87.891 Personal history of nicotine dependence; Z79.899 Other long term (current) drug therapy
CPT/HCPCS: 66984

== ENCOUNTER → 2018-12-08 | Outpatient (CLI) | payer MEDICARE, MEDICAID ==
[~2018-12-08] MED LIST changes: -ACETAMINOPHEN 325 MG TAB PO; +ALBU17IN INH; +AMIO200T PO; +ASPI-1 PO; +ATOR1TAB21 PO; +BREO1INH INH; +BREO1INH3 INH; +CLOT1CRE TOP; +COLA100C5 PO; +DOCU100T8 PO; +ELIQ5TAB PO; +FERR325T3 PO; +FURO40TA2 PO; +INCR1INH INH; +LEVA1.2519 INH; +LEVO500T3 PO; +LISI-538 PO; +METO1TAB32 PO; +METO25TA4 PO; +PANT40TA3 PO; -PHENYLEPHRINE HCL 10 % OPHTH. SOL 5ML OD; -PROPARACAINE 0.5% OPHTH SOL 15ML OD; +RANI1TAB38 PO; +SENN1TAB40 PO; +SYNT100T PO; +VENTAER INH; +VITA100066 PO; +VITA500T PO
--- NOTE | 2018-12-09 18:36 | REP ---
Clinical: Lumbar with right-sided sciatica. Technique: AP, lateral, bilateral oblique, and coned-down views of the lumbosacral spine. Comparison: 12/21/2015. Findings: Advanced multilevel degenerative changes include endplate sclerosis, disc space narrowing, osteophytosis and hypertrophic facet changes. Findings are relatively stable compared to prior examination. Alignment and lordosis maintained. No acute fracture / compression injury or subluxation. Atherosclerotic changes of the aorta noted. Impression: Advanced multilevel degenerative spondylosis. Findings are relatively similar to 2016. Electronically Signed by Mike Meraz MD 12/09/2018 06:27 P
== END ==
LOC: M ADAMS 10:58
PROVIDERS: ATTEND Physician Assistant Medical
DX: M47.896 Other spondylosis, lumbar region (principal); M54.41 Lumbago with sciatica, right side
CPT/HCPCS: 72110; 80053; 81001; 81002; 81374; 82607; 85025; 85652; 86038; 86140; 86431; 86617; 87086; G0463

== ENCOUNTER → 2018-12-08 | Outpatient (REF) | payer MEDICARE, MEDICAID ==
[~2018-12-08] MED LIST changes: -ASPI-1 PO; +ASPI325T PO; +SENN1TAB2 PO; -SENN1TAB40 PO
[2018-12-08 13:11] LABS: APPEARANCE, URINE HAZY (CLEAR); BACTERIA, URINE AUTO 1+ (NEGATIVE); BILIRUBIN, URINE AUTO NEGATIVE (NEGATIVE); BLOOD, URINE BLOOD NEGATIVE (NEGATIVE); COLOR, URINE YELLOW (YELLOW); GLUCOSE, URINE (UA) AUTO NEGATIVE (NEGATIVE); KETONE, URINE AUTO NEGATIVE (NEGATIVE); LEUKOCYTE ESTERASE, URINE AUTO 2+ (NEGATIVE); NITRITE, URINE AUTO NEGATIVE (NEGATIVE); PROTEIN, URINE AUTO NEGATIVE (NEGATIVE); RBC, URINE AUTO 1 /HPF (0-3); SPECIFIC GRAVITY URINE AUTO 1.011 (1.002-1.035); SQUAMOUS EPITHELIAL CELL UR AU 3 /HPF (0-6); TRANSITIONAL EPITHELIAL AUTO 1 /HPF; UROBILINOGEN, URINE AUTO 0.2 mg/dL (0.0-2.0); WBC, URINE AUTO 21 /HPF (0-3)
== END ==
LOC: M SFHCADAM 12:25
PROVIDERS: ATTEND Physician Assistant Medical
DX: M54.41 Lumbago with sciatica, right side (principal); M54.42 Lumbago with sciatica, left side

== ENCOUNTER → 2018-12-08 | Outpatient (REF) | payer MEDICARE, MEDICAID ==
[2018-12-08 12:50] LABS: BASO % 0.5 % (0.0-1.0); EOS # 0.1 10^3/uL (0.0-0.50); EOS % 1.6 % (0.0-3.0); HEMATOCRIT 37.4 % (36.0-47.0); LYMPH # 2.1 10^3/uL (1.5-4.5); LYMPH % 24.1 % (24.0-44.0); MEAN CORPUSCULAR HEMOGLOBIN 29.7 pg (27.0-33.0); MEAN CORPUSCULAR HGB CONC 32.1 g/dl (32.0-36.5); MEAN CORPUSCULAR VOLUME 92.6 fl (80.0-96.0); MONO # 0.8 10^3/uL (0.0-0.8); MONO % 9.2 % (0.0-5.0); NEUTROPHILS # 5.5 10^3/uL (1.8-7.7); NEUTROPHILS % 63.9 % (36.0-66.0); PLATELET COUNT, AUTOMATED 401 10^3/uL (150-450); RED BLOOD COUNT 4.04 10^6/uL (4.00-5.40); WHITE BLOOD COUNT 8.6 10^3/uL (4.0-10.0)
[2018-12-08 13:19] LABS: ALBUMIN 3.6 GM/DL (3.2-5.2); ALT/SGPT 26 U/L (12-78); BILIRUBIN,TOTAL 0.5 MG/DL (0.2-1.0); BLOOD UREA NITROGEN 20 MG/DL (7-18); C REACTIVE PROTEIN QUANTITATIV 0.43 MG/DL (0.00-0.30); CALCIUM LEVEL 9.3 MG/DL (8.8-10.2); CARBON DIOXIDE LEVEL 32 MEQ/L (21-32); CHLORIDE LEVEL 101 MEQ/L (98-107); CREATININE FOR GFR 0.88 MG/DL (0.55-1.30); GLOMERULAR FILTRATION RATE > 60.0 (>32); GLUCOSE, FASTING 82 MG/DL (70-100); POTASSIUM SERUM 4.5 MEQ/L (3.5-5.1); RHEUMATOID FACTOR QUANT < 10.0 IU/ML (<15.0); SODIUM LEVEL 141 MEQ/L (136-145); TOTAL PROTEIN 6.7 GM/DL (6.4-8.2)
[2018-12-08 13:24] LABS: VITAMIN B12 LEVEL 768 PG/ML (247-911)
[2018-12-08 13:38] LABS: ERYTHROCYTE SEDIMENTATION RATE 25 mm/hr (0-30)
== END ==
LOC: M SFHCADAM 10:51
PROVIDERS: ATTEND Physician Assistant Medical
DX: M54.41 Lumbago with sciatica, right side (principal); M54.42 Lumbago with sciatica, left side

== ENCOUNTER 2018-12-14 11:06 | Emergency (ER) | payer MEDICARE, MEDICAID ==
[~2018-12-14] VITALS: Ht 170.2 cm; Wt 105.0 kg
[~2018-12-14 11:06] MED LIST changes: +ASPI-1 PO; -ASPI325T PO; -SENN1TAB2 PO; +SENN1TAB40 PO
[2018-12-14] MEDS ORDERED: ACETAMINOPHEN 325 MG TAB PO ONE (11:30)
--- NOTE | 2018-12-14 11:55 | REP ---
CT Head without contrast HISTORY: Trauma COMPARISON: 11/09/2016 Areas of decreased attenuation are present in the periventricular white matter. This represents small-vessel ischemic disease. There is no intraparenchymal hemorrhage, acute infarct, mass or midline shift. The ventricular system and cortical sulci are dilated consistent with minimal volume loss. There is no extra cerebral collection. There is no fracture. The visualized sinuses are clear. IMPRESSION: 1. Small vessel ischemic disease. 2. Minimal volume loss. Electronically Signed by Darryl Levy MD 12/14/2018 11:46 A
--- NOTE | 2018-12-14 12:42 | REP ---
LEFT KNEE, FIVE VIEWS: HISTORY: Trauma. There was no acute fracture or dislocation. There is mild narrowing of the medial joint space. The lateral joint space and patellofemoral joint space are normal in appearance. IMPRESSION: There is no acute fracture or dislocation. Electronically Signed by Darryl Levy MD 12/14/2018 12:42 P
[2018-12-14 14:54] VITALS: BP 126/61
== END 2018-12-14 15:14 | disposition home or self-care (01) ==
LOC: M ED 11:06 → EDBD 11:06 → M ED 15:14
DX: S80.02XA Contusion of left knee, initial encounter (principal); S60.413A Abrasion of left middle finger, initial encounter; W10.8XXA Fall (on) (from) other stairs and steps, initial encounter; Y92.242 Post office as the place of occurrence of the external cause; I10 Essential (primary) hypertension; J44.9 Chronic obstructive pulmonary disease, unspecified; E07.9 Disorder of thyroid, unspecified; E78.9 Disorder of lipoprotein metabolism, unspecified; D50.9 Iron deficiency anemia, unspecified; Z99.81 Dependence on supplemental oxygen; Z87.891 Personal history of nicotine dependence

== ENCOUNTER → 2019-07-07 | Outpatient (REF) | payer MEDICARE, MEDICAID ==
[~2019-07-07] MED LIST changes: +SENN-53 PO; -SENN1TAB40 PO
[2019-07-07 13:33] LABS: HEMATOCRIT 36.7 % (36.0-47.0); HEMOGLOBIN 11.5 g/dl (12.0-15.5); MEAN CORPUSCULAR HEMOGLOBIN 29.5 pg (27.0-33.0); MEAN CORPUSCULAR HGB CONC 31.3 g/dl (32.0-36.5); MEAN CORPUSCULAR VOLUME 94.1 fl (80.0-96.0); PLATELET COUNT, AUTOMATED 345 10^3/uL (150-450); WHITE BLOOD COUNT 7.9 10^3/uL (4.0-10.0)
[2019-07-07 13:54] LABS: BLOOD UREA NITROGEN 12 MG/DL (7-18); CALCIUM LEVEL 9.2 MG/DL (8.8-10.2); CARBON DIOXIDE LEVEL 31 MEQ/L (21-32); CHLORIDE LEVEL 102 MEQ/L (98-107); GLOMERULAR FILTRATION RATE > 60.0 (>32); GLUCOSE, FASTING 89 MG/DL (70-100); NT-PRO BNP 594 PG/ML (<450); POTASSIUM SERUM 4.5 MEQ/L (3.5-5.1); SODIUM LEVEL 139 MEQ/L (136-145)
== END ==
LOC: M LABDRWAD 13:04
PROVIDERS: ATTEND Internal Medicine Cardiovascular Disease
DX: R06.02 Shortness of breath (principal)

== ENCOUNTER → 2019-07-11 | Outpatient (CLI) | payer MEDICARE, MEDICAID ==
--- NOTE | 2019-07-11 15:18 | REP ---
Two-view chest: 07/11/2019. Indication: Dyspnea. Comparison: 04/14/2018. Findings: No air space consolidation is detected within the hyperinflated lungs. Fibrotic changes are redemonstrated. Cardiac silhouette is stable. There is no pneumothorax. Multilevel degenerative sequelae of the thoracic spine are present. Impression: No acute cardiopulmonary process. Emphysematous and chronic interstitial changes. Stable mild cardiomegaly. Electronically Signed by Chi Leach DO 07/11/2019 03:10 P
== END ==
LOC: M ADAMS 13:31
PROVIDERS: ATTEND Internal Medicine Cardiovascular Disease
DX: M51.34 Other intervertebral disc degeneration, thoracic region (principal); R06.02 Shortness of breath; D50.0 Iron deficiency anemia secondary to blood loss (chronic)

== ENCOUNTER → 2019-07-11 | Outpatient (REF) | payer MEDICARE, MEDICAID ==
[2019-07-11 16:29] LABS: PERCENT SATURATION 18.6 % (13.2-45.0)
== END ==
LOC: M LABDRWAD 15:57
PROVIDERS: ATTEND Internal Medicine Cardiovascular Disease
DX: D50.0 Iron deficiency anemia secondary to blood loss (chronic) (principal)

== ENCOUNTER → 2019-08-28 | Outpatient (REF) | payer MEDICARE, MEDICAID ==
[2019-08-28 12:58] LABS: HEMATOCRIT 36.9 % (36.0-47.0); HEMOGLOBIN 11.7 g/dl (12.0-15.5); MEAN CORPUSCULAR HGB CONC 31.7 g/dl (32.0-36.5); MEAN CORPUSCULAR VOLUME 94.6 fl (80.0-96.0); PLATELET COUNT, AUTOMATED 340 10^3/uL (150-450); WHITE BLOOD COUNT 8.5 10^3/uL (4.0-10.0)
[2019-08-28 13:16] LABS: ALBUMIN 3.6 GM/DL (3.2-5.2); ALT/SGPT 21 U/L (12-78); BILIRUBIN,TOTAL 0.4 MG/DL (0.2-1.0); BLOOD UREA NITROGEN 21 MG/DL (7-18); CARBON DIOXIDE LEVEL 32 MEQ/L (21-32); CHLORIDE LEVEL 103 MEQ/L (98-107); CREATININE FOR GFR 0.93 MG/DL (0.55-1.30); FREE T4 1.07 NG/DL (0.76-1.46); GLOMERULAR FILTRATION RATE > 60.0 (>32); GLUCOSE, FASTING 89 MG/DL (70-100); POTASSIUM SERUM 3.8 MEQ/L (3.5-5.1); SODIUM LEVEL 141 MEQ/L (136-145); TOTAL PROTEIN 6.8 GM/DL (6.4-8.2)
== END ==
LOC: M SFHCADAM 08:42
PROVIDERS: ATTEND Physician Assistant
DX: I48.20 Chronic atrial fibrillation, unspecified (principal); J44.9 Chronic obstructive pulmonary disease, unspecified; I11.9 Hypertensive heart disease without heart failure; E03.9 Hypothyroidism, unspecified

== ENCOUNTER → 2019-12-12 | Outpatient (REF) | payer MEDICARE, MEDICAID ==
[2019-12-12 16:20] LABS: BASO % 0.6 % (0.0-1.0); EOS # 0.1 10^3/uL (0.0-0.5); EOS % 1.5 % (0.0-3.0); HEMATOCRIT 37.7 % (36.0-47.0); HEMOGLOBIN 11.9 g/dl (12.0-15.5); LYMPH # 1.8 10^3/uL (1.5-5.0); LYMPH % 24.5 % (24.0-44.0); MEAN CORPUSCULAR HEMOGLOBIN 29.6 pg (27.0-33.0); MEAN CORPUSCULAR HGB CONC 31.6 g/dl (32.0-36.5); MEAN CORPUSCULAR VOLUME 93.8 fl (80.0-96.0); MONO # 0.6 10^3/uL (0.0-0.8); MONO % 8.6 % (0.0-5.0); NEUTROPHILS # 4.6 10^3/uL (1.5-8.5); NEUTROPHILS % 64.2 % (36.0-66.0); PLATELET COUNT, AUTOMATED 363 10^3/uL (150-450); RED BLOOD COUNT 4.02 10^6/uL (4.00-5.40); WHITE BLOOD COUNT 7.2 10^3/uL (4.0-10.0)
[2019-12-12 16:49] LABS: ALBUMIN 3.8 GM/DL (3.2-5.2); ALT/SGPT 20 U/L (12-78); BILIRUBIN,TOTAL 0.4 MG/DL (0.2-1.0); BLOOD UREA NITROGEN 17 MG/DL (7-18); CALCIUM LEVEL 9.4 MG/DL (8.8-10.2); CARBON DIOXIDE LEVEL 33 MEQ/L (21-32); CHLORIDE LEVEL 103 MEQ/L (98-107); CREATININE FOR GFR 0.84 MG/DL (0.55-1.30); GLOMERULAR FILTRATION RATE > 60.0 (>32); GLUCOSE, FASTING 95 MG/DL (70-100); SODIUM LEVEL 141 MEQ/L (136-145)
== END ==
LOC: M SFHCADAM 13:57
PROVIDERS: ATTEND Physician Assistant
DX: J44.1 Chronic obstructive pulmonary disease with (acute) exacerbation (principal)

== ENCOUNTER → 2019-12-12 | Outpatient (CLI) | payer MEDICARE, MEDICAID ==
[~2019-12-12] MED LIST changes: +VITA-243 PO; -VITA500T PO
--- NOTE | 2019-12-12 14:30 | REP ---
Clinical: COPD with acute exacerbation. Technique: PA and lateral. Comparison: 07/11/2019. Findings: Mediastinum and cardiac silhouette are stable. Stable bilateral pleuroparenchymal changes are again noted. No obvious acute consolidation, effusion, or pneumothorax. Skeletal structures are intact and demonstrate age-related degenerative changes. Impression: Chronic stable changes. No obvious acute consolidation or effusion. Electronically Signed by Mike Meraz MD 12/12/2019 02:21 P
== END ==
LOC: M ADAMS 14:08
PROVIDERS: ATTEND Physician Assistant
DX: J44.1 Chronic obstructive pulmonary disease with (acute) exacerbation (principal)
CPT/HCPCS: 71046; 80053; 85025; G0463

== ENCOUNTER → 2020-03-05 | Outpatient (REF) | payer MEDICARE, MEDICAID ==
[~2020-03-05] MED LIST changes: -AMIO200T PO; +AMIO200T3 PO; +B-122500 PO; -CLOT1CRE TOP; +CLOT1CRE51 TOP; +IRON325T9 PO; -LISI-538 PO; +LISI20TA33 PO; +OMEP-221 PO; +PANT40TA29 PO; -PANT40TA3 PO
[2020-03-05 13:35] LABS: ALBUMIN 3.6 GM/DL (3.2-5.2); ALT/SGPT 22 U/L (12-78); BILIRUBIN,TOTAL 0.6 MG/DL (0.2-1.0); BLOOD UREA NITROGEN 15 MG/DL (7-18); CALCIUM LEVEL 9.5 MG/DL (8.8-10.2); CARBON DIOXIDE LEVEL 30 MEQ/L (21-32); CHLORIDE LEVEL 105 MEQ/L (98-107); CHOLESTEROL LEVEL 167 MG/DL (<200); CHOLESTEROL RISK RATIO 2.197 (<5); CREATININE FOR GFR 0.76 MG/DL (0.55-1.30); GLOMERULAR FILTRATION RATE > 60.0 (>32); GLUCOSE, FASTING 99 MG/DL (70-100); HDL CHOLESTEROL 76 MG/DL (>40); LDL CHOLESTEROL 74 MG/DL (<100); NON-HDL-C 91 MG/DL; POTASSIUM SERUM 4.3 MEQ/L (3.5-5.1); SODIUM LEVEL 140 MEQ/L (136-145); TOTAL PROTEIN 6.6 GM/DL (6.4-8.2); TRIGLYCERIDES LEVEL 86 MG/DL (<150)
[2020-03-05 13:40] LABS: HEMATOCRIT 37.5 % (36.0-47.0); HEMOGLOBIN 11.7 g/dl (12.0-15.5); MEAN CORPUSCULAR HEMOGLOBIN 29.4 pg (27.0-33.0); MEAN CORPUSCULAR HGB CONC 31.2 g/dl (32.0-36.5); MEAN CORPUSCULAR VOLUME 94.2 fl (80.0-96.0); PLATELET COUNT, AUTOMATED 317 10^3/uL (150-450); RED BLOOD COUNT 3.98 10^6/uL (4.00-5.40); WHITE BLOOD COUNT 7.2 10^3/uL (4.0-10.0)
[2020-03-05 13:55] LABS: CREATININE, URINE 52.5 MG/DL; MALB URINE SIEMENS < 5.0 MG/L; MAU/CREAT RATIO 9.5 MCG/MG (0.0-30.0)
== END ==
LOC: M SFHCADAM 09:02
PROVIDERS: ATTEND Physician Assistant
DX: J44.9 Chronic obstructive pulmonary disease, unspecified (principal); E03.9 Hypothyroidism, unspecified; I48.21 Permanent atrial fibrillation; E78.5 Hyperlipidemia, unspecified; I11.9 Hypertensive heart disease without heart failure

== ENCOUNTER → 2020-04-08 | Outpatient (REF) | payer MEDICARE, MEDICAID ==
[~2020-04-08] MED LIST changes: +LISI-538 PO; -LISI20TA33 PO
[2020-04-08 13:21] LABS: BASO # 0.1 10^3/uL (0.0-0.2); BASO % 0.8 % (0.0-1.0); EOS # 0.1 10^3/uL (0.0-0.5); EOS % 2.1 % (0.0-3.0); HEMATOCRIT 36.1 % (36.0-47.0); HEMOGLOBIN 11.3 g/dl (12.0-15.5); LYMPH # 1.8 10^3/uL (1.5-5.0); LYMPH % 28.5 % (24.0-44.0); MEAN CORPUSCULAR HGB CONC 31.3 g/dl (32.0-36.5); MEAN CORPUSCULAR VOLUME 92.8 fl (80.0-96.0); MONO # 0.6 10^3/uL (0.0-0.8); MONO % 10.2 % (0.0-5.0); NEUTROPHILS # 3.6 10^3/uL (1.5-8.5); NEUTROPHILS % 58.1 % (36.0-66.0); PLATELET COUNT, AUTOMATED 333 10^3/uL (150-450); RED BLOOD COUNT 3.89 10^6/uL (4.00-5.40); WHITE BLOOD COUNT 6.2 10^3/uL (4.0-10.0)
[2020-04-08 13:49] LABS: ALBUMIN 3.4 GM/DL (3.2-5.2); ALT/SGPT 20 U/L (12-78); BILIRUBIN,TOTAL 0.4 MG/DL (0.2-1.0); BLOOD UREA NITROGEN 16 MG/DL (7-18); CALCIUM LEVEL 9.2 MG/DL (8.8-10.2); CARBON DIOXIDE LEVEL 32 MEQ/L (21-32); CHLORIDE LEVEL 106 MEQ/L (98-107); CREATININE FOR GFR 0.95 MG/DL (0.55-1.30); GLOMERULAR FILTRATION RATE > 60.0 (>32); GLUCOSE, FASTING 96 MG/DL (70-100); NT-PRO BNP 1829 PG/ML (<450); POTASSIUM SERUM 3.7 MEQ/L (3.5-5.1); SODIUM LEVEL 144 MEQ/L (136-145); TOTAL PROTEIN 6.5 GM/DL (6.4-8.2)
== END ==
LOC: M LABDRWAD 12:34
PROVIDERS: ATTEND Physician Assistant
DX: R60.9 Edema, unspecified (principal)

== ENCOUNTER → 2021-02-26 | Outpatient (REF) | payer MEDICARE, MEDICAID ==
[~2021-02-26] MED LIST changes: -LISI-538 PO; +LISI20TA33 PO
[2021-02-26 13:57] LABS: HEMATOCRIT 38.7 % (36.0-47.0); HEMOGLOBIN 12.2 g/dl (12.0-15.5); MEAN CORPUSCULAR HEMOGLOBIN 29.5 pg (27.0-33.0); MEAN CORPUSCULAR HGB CONC 31.5 g/dl (32.0-36.5); MEAN CORPUSCULAR VOLUME 93.7 fl (80.0-96.0); PLATELET COUNT, AUTOMATED 329 10^3/uL (150-450); RED BLOOD COUNT 4.13 10^6/uL (4.00-5.40); WHITE BLOOD COUNT 8.6 10^3/uL (4.0-10.0)
[2021-02-26 15:50] LABS: ALBUMIN 3.6 GM/DL (3.2-5.2); ALT/SGPT 17 U/L (12-78); BILIRUBIN,TOTAL 0.6 MG/DL (0.2-1.0); BLOOD UREA NITROGEN 18 MG/DL (7-18); CALCIUM LEVEL 9.1 MG/DL (8.8-10.2); CARBON DIOXIDE LEVEL 31 MEQ/L (21-32); CHLORIDE LEVEL 104 MEQ/L (98-107); CREATININE FOR GFR 0.77 MG/DL (0.55-1.30); FREE T4 1.39 NG/DL (0.76-1.46); GLOMERULAR FILTRATION RATE > 60.0 (>32); GLUCOSE, FASTING 94 MG/DL (70-100); POTASSIUM SERUM 3.9 MEQ/L (3.5-5.1); SODIUM LEVEL 143 MEQ/L (136-145); TOTAL PROTEIN 6.6 GM/DL (6.4-8.2)
== END ==
LOC: M SFHCADAM 08:48
PROVIDERS: ATTEND Physician Assistant
DX: R06.00 Dyspnea, unspecified (principal); J44.9 Chronic obstructive pulmonary disease, unspecified; I48.0 Paroxysmal atrial fibrillation; E03.9 Hypothyroidism, unspecified

== ENCOUNTER → 2021-07-18 | Outpatient (REF) | payer MEDICARE, MEDICAID | LOC: M SFHCADAM 17:18 | PROVIDERS: ATTEND Family Medicine | DX: R05.9 Cough, unspecified (principal) | CPT/HCPCS: 87426; G0463; U0003 ==

== ENCOUNTER → 2021-09-04 | Outpatient (REF) | payer MEDICARE, MEDICAID | LOC: M SFHCADAM 09:24 | PROVIDERS: ATTEND Physician Assistant | DX: R19.7 Diarrhea, unspecified (principal); C20 Malignant neoplasm of rectum; D50.0 Iron deficiency anemia secondary to blood loss (chronic) ==

== ENCOUNTER → 2021-09-07 | Outpatient (REF) | payer MEDICARE, MEDICAID | LOC: M SFHCADAM 12:51 | PROVIDERS: ATTEND Physician Assistant | DX: R19.7 Diarrhea, unspecified (principal) ==

== ENCOUNTER → 2021-09-09 | Outpatient (REF) | payer MEDICARE, MEDICAID ==
[2021-09-09 13:04] LABS: HEMATOCRIT 39.9 % (36.0-47.0); HEMOGLOBIN 12.2 g/dl (12.0-15.5); MEAN CORPUSCULAR HEMOGLOBIN 28.6 pg (27.0-33.0); MEAN CORPUSCULAR HGB CONC 30.6 g/dl (32.0-36.5); MEAN CORPUSCULAR VOLUME 93.4 fl (80.0-96.0); PLATELET COUNT, AUTOMATED 322 10^3/uL (150-450); RED BLOOD COUNT 4.27 10^6/uL (4.00-5.40); WHITE BLOOD COUNT 7.3 10^3/uL (4.0-10.0)
[2021-09-09 13:40] LABS: PERCENT SATURATION 17.5 % (13.2-45.0)
== END ==
LOC: M SFHCADAM 07:58
PROVIDERS: ATTEND Physician Assistant
DX: R19.7 Diarrhea, unspecified (principal); C20 Malignant neoplasm of rectum; D50.0 Iron deficiency anemia secondary to blood loss (chronic)

== ENCOUNTER 2021-12-28 12:53 | Emergency (ER) | payer MEDICAID, MEDICARE ==
[~2021-12-28] VITALS: Ht 170.2 cm; Wt 99.0 kg
[~2021-12-28 12:53] MED LIST changes: -AMIO200T3 PO; +AMIO200T49 PO; -LEVO500T3 PO; +LEVO500T4 PO; -OMEP-221 PO; +OMEP40CA5 PO
[2021-12-28] MEDS ORDERED: ASPIRIN 81 MG CHEW TABLET PO ONE (13:15)
[2021-12-28 13:31] LABS: BASO % 0.4 % (0.0-1.0); EOS # 0.2 10^3/uL (0.0-0.5); HEMATOCRIT 37.8 % (36.0-47.0); LYMPH # 2.3 10^3/uL (1.5-5.0); LYMPH % 27.9 % (24.0-44.0); MEAN CORPUSCULAR HEMOGLOBIN 29.3 pg (27.0-33.0); MEAN CORPUSCULAR HGB CONC 31.7 g/dl (32.0-36.5); MEAN CORPUSCULAR VOLUME 92.2 fl (80.0-96.0); MONO # 0.9 10^3/uL (0.0-0.8); NEUTROPHILS # 4.8 10^3/uL (1.5-8.5); NEUTROPHILS % 58.2 % (36.0-66.0); PLATELET COUNT, AUTOMATED 319 10^3/uL (150-450); WHITE BLOOD COUNT 8.2 10^3/uL (4.0-10.0)
[2021-12-28 13:42] LABS: PARTIAL THROMBOPLASTIN TIME 36.6 SECONDS (25.9-37.0)
[2021-12-28 13:54] LABS: CK-MB VALUE MASS < 1.0 NG/ML (<3.6); CPK CREATINE PHOSPHOKINASE 55 U/L (26-192); MB/CK RELATIVE INDEX 1.82 (< OR =4)
[2021-12-28 14:02] LABS: ALBUMIN 3.8 GM/DL (3.2-5.2); BILIRUBIN,DIRECT 0.1 MG/DL (0.0-0.2); BILIRUBIN,TOTAL 0.6 MG/DL (0.2-1.0); FREE T4 1.3 NG/DL (0.76-1.46); THYROID STIMULATING HORMONE 1.1 uIU/ML (0.358-3.740); TOTAL PROTEIN 6.8 GM/DL (6.4-8.2)
[2021-12-28 15:04] LABS: INR 1.16; PROTHROMBIN TIME 15.2 SECONDS (12.7-14.5)
[2021-12-28] MEDS ORDERED: ISOVUE-370 76% 100ML VIAL As Ordered ONE (15:12)
[2021-12-28 15:15] LABS: CK-MB VALUE MASS < 1.0 NG/ML (<3.6); CPK CREATINE PHOSPHOKINASE 57 U/L (26-192); MB/CK RELATIVE INDEX 1.75 (< OR =4)
[2021-12-28] MEDS ORDERED: FUROSEMIDE 40MG/4ML VIAL (J1940) IV ONE (16:35)
[2021-12-28 16:57] LABS: CK-MB VALUE MASS < 1.0 NG/ML (<3.6); CPK CREATINE PHOSPHOKINASE 57 U/L (26-192); MB/CK RELATIVE INDEX 1.75 (< OR =4)
[2021-12-28] MEDS ORDERED: methylPREDNISolone 125MG 2ML VIAL IV ONE (18:00)
[2021-12-28 18:13] VITALS: BP 154/71
[2021-12-28] MEDS ORDERED: PRED20TA PO (18:35)
== END 2021-12-28 18:41 | disposition home or self-care (01) ==
LOC: M ED 12:53
DX: R07.9 Chest pain, unspecified (principal); R06.02 Shortness of breath; I10 Essential (primary) hypertension; J44.9 Chronic obstructive pulmonary disease, unspecified; I48.91 Unspecified atrial fibrillation; E07.9 Disorder of thyroid, unspecified; E61.1 Iron deficiency; Z79.899 Other long term (current) drug therapy; Z79.890 Hormone replacement therapy; Z79.01 Long term (current) use of anticoagulants; Z87.891 Personal history of nicotine dependence; Z99.81 Dependence on supplemental oxygen
CPT/HCPCS: 71045; 71275; 80047; 80076; 82550; 82553; 83690; 83880; 84439; 84443; 84484; 85025; 85610; 85730; 87040; 87798; 93005; 93041; 94760; 96374; 96375; 99285; J1940; J2930; Q9967

== ENCOUNTER → 2022-03-16 | Outpatient (REF) | payer MEDICARE, MEDICAID ==
[~2022-03-16] MED LIST changes: +PRED20TA PO
[2022-03-16 12:55] LABS: HEMATOCRIT 37.1 % (36.0-47.0); HEMOGLOBIN 11.4 g/dl (12.0-15.5); MEAN CORPUSCULAR HEMOGLOBIN 28.4 pg (27.0-33.0); MEAN CORPUSCULAR HGB CONC 30.7 g/dl (32.0-36.5); MEAN CORPUSCULAR VOLUME 92.3 fl (80.0-96.0); PLATELET COUNT, AUTOMATED 316 10^3/uL (150-450); RED BLOOD COUNT 4.02 10^6/uL (4.00-5.40); WHITE BLOOD COUNT 6.4 10^3/uL (4.0-10.0)
[2022-03-16 13:57] LABS: ALBUMIN 3.5 GM/DL (3.2-5.2); ALT/SGPT 21 U/L (12-78); BILIRUBIN,TOTAL 0.7 MG/DL (0.2-1.0); BLOOD UREA NITROGEN 15 MG/DL (7-18); CALCIUM LEVEL 9.6 MG/DL (8.8-10.2); CARBON DIOXIDE LEVEL 31 MEQ/L (21-32); CHLORIDE LEVEL 106 MEQ/L (98-107); CREATININE FOR GFR 0.85 MG/DL (0.55-1.30); FREE T4 1.27 NG/DL (0.76-1.46); GLOMERULAR FILTRATION RATE > 60.0 (>32); GLUCOSE, FASTING 94 MG/DL (70-100); POTASSIUM SERUM 3.8 MEQ/L (3.5-5.1); SODIUM LEVEL 144 MEQ/L (136-145); TOTAL PROTEIN 6.2 GM/DL (6.4-8.2)
== END ==
LOC: M SFHCADAM 07:06
PROVIDERS: ATTEND Physician Assistant
DX: J01.90 Acute sinusitis, unspecified (principal); E03.9 Hypothyroidism, unspecified; I48.0 Paroxysmal atrial fibrillation; I50.22 Chronic systolic (congestive) heart failure

== ENCOUNTER 2022-04-22 23:59 | Emergency (ER) | payer MEDICARE, MEDICAID ==
[~2022-04-22] VITALS: Ht 170.2 cm; Wt 96.8 kg
[~2022-04-22 23:59] MED LIST changes: +LEVO1TAB39 PO; -LEVO500T4 PO
[2022-04-23 00:31] LABS: BASO # 0.1 10^3/uL (0.0-0.2); BASO % 0.6 % (0.0-1.0); EOS # 0.2 10^3/uL (0.0-0.5); EOS % 2.8 % (0.0-3.0); HEMATOCRIT 36.4 % (36.0-47.0); HEMOGLOBIN 11.8 g/dl (12.0-15.5); LYMPH # 2.3 10^3/uL (1.5-5.0); LYMPH % 29.2 % (24.0-44.0); MEAN CORPUSCULAR HEMOGLOBIN 29.9 pg (27.0-33.0); MEAN CORPUSCULAR HGB CONC 32.4 g/dl (32.0-36.5); MEAN CORPUSCULAR VOLUME 92.2 fl (80.0-96.0); MONO # 0.8 10^3/uL (0.0-0.8); MONO % 10.3 % (2.0-8.0); NEUTROPHILS # 4.4 10^3/uL (1.5-8.5); NEUTROPHILS % 56.6 % (36.0-66.0); PLATELET COUNT, AUTOMATED 323 10^3/uL (150-450); RED BLOOD COUNT 3.95 10^6/uL (4.00-5.40); WHITE BLOOD COUNT 7.8 10^3/uL (4.0-10.0)
[2022-04-23 01:03] LABS: ALBUMIN 3.6 GM/DL (3.2-5.2); ALT/SGPT 22 U/L (12-78); BILIRUBIN,DIRECT 0.2 MG/DL (0.0-0.2); BILIRUBIN,TOTAL 0.4 MG/DL (0.2-1.0); BLOOD UREA NITROGEN 15 MG/DL (7-18); CARBON DIOXIDE LEVEL 32 MEQ/L (21-32); CHLORIDE LEVEL 102 MEQ/L (98-107); CREATININE FOR GFR 0.92 MG/DL (0.55-1.30); GLOMERULAR FILTRATION RATE > 60.0 (>32); GLUCOSE, FASTING 120 MG/DL (70-100); LIPASE 101 U/L (73-393); NT-PRO BNP 2858 PG/ML (<450); POTASSIUM SERUM 3.7 MEQ/L (3.5-5.1); SODIUM LEVEL 139 MEQ/L (136-145); TOTAL PROTEIN 6.8 GM/DL (6.4-8.2)
[2022-04-23 01:04] LABS: CK-MB VALUE MASS < 1.0 NG/ML (<3.6); CPK CREATINE PHOSPHOKINASE 68 U/L (26-192); MB/CK RELATIVE INDEX 1.47 (< OR =4)
[2022-04-23 03:15] LABS: CK-MB VALUE MASS < 1.0 NG/ML (<3.6); CPK CREATINE PHOSPHOKINASE 57 U/L (26-192); MB/CK RELATIVE INDEX 1.75 (< OR =4)
[2022-04-23] MEDS ORDERED: KETOROLAC 30 MG/ML 1ML VIAL IV ONE (03:35)
[2022-04-23 05:15] VITALS: BP 164/72
[2022-04-23] MEDS ORDERED: PRED20TA PO (05:19)
== END 2022-04-23 05:44 | disposition home or self-care (01) ==
LOC: EDBD 23:59 → M ED 23:59
DX: R07.9 Chest pain, unspecified (principal); I10 Essential (primary) hypertension; J44.9 Chronic obstructive pulmonary disease, unspecified; Z86.79 Personal history of other diseases of the circulatory system; Z95.0 Presence of cardiac pacemaker; Z79.01 Long term (current) use of anticoagulants; Z79.51 Long term (current) use of inhaled steroids; Z79.899 Other long term (current) drug therapy
CPT/HCPCS: 71045; 80048; 80076; 82550; 82553; 83690; 83880; 84484; 85025; 93005; 93041; 94760; 99285; J1885

== ENCOUNTER → 2022-07-21 | Outpatient (REF) | payer MEDICARE, MEDICAID | LOC: M SFHCADAM 16:29 | PROVIDERS: ATTEND Physician Assistant | DX: J44.1 Chronic obstructive pulmonary disease with (acute) exacerbation (principal) ==

== ENCOUNTER → 2022-09-24 | Outpatient (CLI) | payer MEDICARE, MEDICAID | LOC: M ADAMS 09:14 | PROVIDERS: ATTEND Physician Assistant | DX: J44.9 Chronic obstructive pulmonary disease, unspecified (principal); I48.0 Paroxysmal atrial fibrillation; J40 Bronchitis, not specified as acute or chronic ==

== ENCOUNTER → 2022-09-24 | Outpatient (REF) | payer MEDICARE, MEDICAID ==
[2022-09-24 13:17] LABS: BASO % 0.6 % (0.0-1.0); EOS # 0.1 10^3/uL (0.0-0.5); HEMATOCRIT 38.4 % (36.0-47.0); HEMOGLOBIN 11.7 g/dl (12.0-15.5); LYMPH % 28.7 % (24.0-44.0); MEAN CORPUSCULAR HEMOGLOBIN 29.3 pg (27.0-33.0); MEAN CORPUSCULAR HGB CONC 30.5 g/dl (32.0-36.5); MONO # 0.7 10^3/uL (0.0-0.8); MONO % 9.5 % (2.0-8.0); NEUTROPHILS # 4.2 10^3/uL (1.5-8.5); NEUTROPHILS % 58.9 % (36.0-66.0); PLATELET COUNT, AUTOMATED 293 10^3/uL (150-450); WHITE BLOOD COUNT 7.1 10^3/uL (4.0-10.0)
[2022-09-24 14:03] LABS: ALBUMIN 3.6 G/DL (3.2-5.2); ALKALINE PHOSPHATASE 75 U/L (46-116); ALT/SGPT 24 U/L (7.0-40); AST/SGOT 23 U/L (<34); BILIRUBIN,TOTAL 0.7 MG/DL (0.3-1.2); BLOOD UREA NITROGEN 13 MG/DL (9-23); CALCIUM LEVEL 9.2 MG/DL (8.3-10.6); CARBON DIOXIDE LEVEL 29 MMOL/L (20-31); CHLORIDE LEVEL 106 MMOL/L (98-107); CREATININE FOR GFR 0.77 MG/DL (0.55-1.30); GLOMERULAR FILTRATION RATE > 60.0 (>32); GLUCOSE, FASTING 91 MG/DL (74-106); POTASSIUM SERUM 4.7 MMOL/L (3.5-5.1); SODIUM LEVEL 143 MMOL/L (136-145); TOTAL PROTEIN 6.2 G/DL (5.7-8.2)
== END ==
LOC: M SFHCADAM 09:04
PROVIDERS: ATTEND Physician Assistant
DX: J44.9 Chronic obstructive pulmonary disease, unspecified (principal); I48.0 Paroxysmal atrial fibrillation; J40 Bronchitis, not specified as acute or chronic

== ENCOUNTER → 2023-04-08 | Outpatient (REF) | payer MEDICARE, MEDICAID ==
[2023-04-08 13:06] LABS: BASO # 0.1 10^3/uL (0.0-0.2); BASO % 0.6 % (0.0-1.0); EOS # 0.2 10^3/uL (0.0-0.5); EOS % 2.3 % (0.0-3.0); HEMATOCRIT 35.9 % (36.0-47.0); HEMOGLOBIN 11.4 g/dl (12.0-15.5); LYMPH # 1.7 10^3/uL (1.5-5.0); LYMPH % 21.6 % (24.0-44.0); MEAN CORPUSCULAR HEMOGLOBIN 29.8 pg (27.0-33.0); MEAN CORPUSCULAR HGB CONC 31.8 g/dl (32.0-36.5); MONO # 0.7 10^3/uL (0.0-0.8); MONO % 9.4 % (2.0-8.0); NEUTROPHILS # 5.1 10^3/uL (1.5-8.5); NEUTROPHILS % 65.6 % (36.0-66.0); PLATELET COUNT, AUTOMATED 298 10^3/uL (150-450); RED BLOOD COUNT 3.82 10^6/uL (4.00-5.40); WHITE BLOOD COUNT 7.8 10^3/uL (4.0-10.0)
[2023-04-08 14:47] LABS: ALBUMIN 3.5 G/DL (3.2-5.2); ALKALINE PHOSPHATASE 83 U/L (46-116); ALT/SGPT 19 U/L (7.0-40); AST/SGOT 18 U/L (<34); BILIRUBIN,TOTAL 0.8 MG/DL (0.3-1.2); BLOOD UREA NITROGEN 16 MG/DL (9-23); CALCIUM LEVEL 9.1 MG/DL (8.3-10.6); CARBON DIOXIDE LEVEL 30 MMOL/L (20-31); CHLORIDE LEVEL 105 MMOL/L (98-107); CREATININE FOR GFR 0.77 MG/DL (0.55-1.30); FREE T4 1.28 NG/DL (0.89-1.76); GLOMERULAR FILTRATION RATE > 60.0 (>32); GLUCOSE, FASTING 101 MG/DL (74-106); POTASSIUM SERUM 3.8 MMOL/L (3.5-5.1); SODIUM LEVEL 144 MMOL/L (136-145); THYROID STIMULATING HORMONE 1.878 uIU/ML (0.55-4.78); TOTAL PROTEIN 6.5 G/DL (5.7-8.2)
== END ==
LOC: M SFHCADAM 09:49
PROVIDERS: ATTEND Physician Assistant
DX: I48.91 Unspecified atrial fibrillation (principal); R06.02 Shortness of breath

== ENCOUNTER → 2023-04-08 | Outpatient (CLI) | payer MEDICARE, MEDICAID | LOC: M ADAMS 08:48 | PROVIDERS: ATTEND Physician Assistant | DX: J84.89 Other specified interstitial pulmonary diseases (principal); I51.7 Cardiomegaly; M51.34 Other intervertebral disc degeneration, thoracic region ==

== ENCOUNTER → 2023-04-15 | Outpatient (REF) | payer MEDICARE, MEDICAID ==
[2023-04-15 18:16] LABS: BASO # 0.1 10^3/uL (0.0-0.2); BASO % 0.4 % (0.0-1.0); EOS # 0.1 10^3/uL (0.0-0.5); EOS % 1.1 % (0.0-3.0); HEMATOCRIT 39.4 % (36.0-47.0); HEMOGLOBIN 12.6 g/dl (12.0-15.5); LYMPH # 2.3 10^3/uL (1.5-5.0); LYMPH % 18.5 % (24.0-44.0); MEAN CORPUSCULAR HEMOGLOBIN 29.2 pg (27.0-33.0); MEAN CORPUSCULAR VOLUME 91.4 fl (80.0-96.0); MONO % 8.2 % (2.0-8.0); NEUTROPHILS # 8.7 10^3/uL (1.5-8.5); NEUTROPHILS % 70.6 % (36.0-66.0); PLATELET COUNT, AUTOMATED 398 10^3/uL (150-450); RED BLOOD COUNT 4.31 10^6/uL (4.00-5.40); WHITE BLOOD COUNT 12.4 10^3/uL (4.0-10.0)
[2023-04-15 18:29] LABS: ALBUMIN 3.6 G/DL (3.2-5.2); ALKALINE PHOSPHATASE 92 U/L (46-116); ALT/SGPT 20 U/L (7.0-40); AST/SGOT 12 U/L (<34); BILIRUBIN,TOTAL 0.9 MG/DL (0.3-1.2); BLOOD UREA NITROGEN 17 MG/DL (9-23); CARBON DIOXIDE LEVEL 34 MMOL/L (20-31); CHLORIDE LEVEL 100 MMOL/L (98-107); CREATININE FOR GFR 0.88 MG/DL (0.55-1.30); GLOMERULAR FILTRATION RATE > 60.0 (>32); GLUCOSE, FASTING 113 MG/DL (74-106); MAGNESIUM LEVEL 1.7 MG/DL (1.8-2.4); POTASSIUM SERUM 3.6 MMOL/L (3.5-5.1); SODIUM LEVEL 141 MMOL/L (136-145); TOTAL PROTEIN 6.6 G/DL (5.7-8.2)
== END ==
LOC: M SFHCADAM 14:54
PROVIDERS: ATTEND Physician Assistant
DX: R11.0 Nausea (principal); R19.7 Diarrhea, unspecified

== ENCOUNTER → 2023-04-16 | Outpatient (REF) | payer MEDICARE, MEDICAID | LOC: M SFHCADAM 12:47 | PROVIDERS: ATTEND Physician Assistant | DX: R19.7 Diarrhea, unspecified (principal) ==

== ENCOUNTER → 2023-09-01 | Outpatient (REF) | payer MEDICARE, MEDICAID ==
[2023-09-01 16:24] LABS: HEMATOCRIT 37.8 % (36.0-47.0); HEMOGLOBIN 11.9 g/dl (12.0-15.5); MEAN CORPUSCULAR HEMOGLOBIN 29.7 pg (27.0-33.0); MEAN CORPUSCULAR HGB CONC 31.5 g/dl (32.0-36.5); MEAN CORPUSCULAR VOLUME 94.3 fl (80.0-96.0); PLATELET COUNT, AUTOMATED 366 10^3/uL (150-450); RED BLOOD COUNT 4.01 10^6/uL (4.00-5.40); WHITE BLOOD COUNT 8.8 10^3/uL (4.0-10.0)
[2023-09-01 16:54] LABS: ALBUMIN 3.7 G/DL (3.2-5.2); ALKALINE PHOSPHATASE 85 U/L (46-116); ALT/SGPT 15 U/L (7.0-40); AST/SGOT 17 U/L (<34); BILIRUBIN,TOTAL 0.5 MG/DL (0.3-1.2); BLOOD UREA NITROGEN 17 MG/DL (9-23); CALCIUM LEVEL 9.4 MG/DL (8.3-10.6); CARBON DIOXIDE LEVEL 30 MMOL/L (20-31); CHLORIDE LEVEL 105 MMOL/L (98-107); CREATININE FOR GFR 0.77 MG/DL (0.55-1.30); GLOMERULAR FILTRATION RATE > 60.0 (>32); GLUCOSE, FASTING 91 MG/DL (74-106); POTASSIUM SERUM 4.2 MMOL/L (3.5-5.1); SODIUM LEVEL 144 MMOL/L (136-145); TOTAL PROTEIN 6.5 G/DL (5.7-8.2)
[2023-09-01 16:57] LABS: THYROID STIMULATING HORMONE 1.714 uIU/ML (0.55-4.78)
[2023-09-01 17:00] LABS: FREE T4 1.46 NG/DL (0.89-1.76)
== END ==
LOC: M SFHCADAM 11:41
PROVIDERS: ATTEND Physician Assistant
DX: R09.89 Other specified symptoms and signs involving the circulatory and respiratory systems (principal); I48.91 Unspecified atrial fibrillation; K21.9 Gastro-esophageal reflux disease without esophagitis; J44.9 Chronic obstructive pulmonary disease, unspecified; J40 Bronchitis, not specified as acute or chronic; E03.9 Hypothyroidism, unspecified; I11.9 Hypertensive heart disease without heart failure; E78.5 Hyperlipidemia, unspecified

== ENCOUNTER → 2023-12-08 | Outpatient (CLI) | payer MEDICARE, MEDICAID ==
[~2023-12-08] MED LIST changes: +FERR325T14 PO; -IRON325T9 PO
== END ==
LOC: M ADAMS 15:25
PROVIDERS: ATTEND Physician Assistant
DX: I51.7 Cardiomegaly (principal); R05.1 Acute cough; R22.31 Localized swelling, mass and lump, right upper limb; Z95.0 Presence of cardiac pacemaker

== ENCOUNTER → 2023-12-08 | Outpatient (REF) | payer MEDICARE, MEDICAID ==
[2023-12-08 18:05] LABS: BASO # 0.1 10^3/uL (0.0-0.2); BASO % 0.6 % (0.0-1.0); EOS # 0.1 10^3/uL (0.0-0.5); HEMATOCRIT 36.8 % (36.0-47.0); HEMOGLOBIN 11.5 g/dl (12.0-15.5); LYMPH # 2.8 10^3/uL (1.5-5.0); LYMPH % 26.3 % (24.0-44.0); MEAN CORPUSCULAR HEMOGLOBIN 28.7 pg (27.0-33.0); MEAN CORPUSCULAR HGB CONC 31.3 g/dl (32.0-36.5); MEAN CORPUSCULAR VOLUME 91.8 fl (80.0-96.0); MONO # 1.2 10^3/uL (0.0-0.8); MONO % 11.1 % (2.0-8.0); NEUTROPHILS # 6.4 10^3/uL (1.5-8.5); NEUTROPHILS % 60.5 % (36.0-66.0); PLATELET COUNT, AUTOMATED 401 10^3/uL (150-450); RED BLOOD COUNT 4.01 10^6/uL (4.00-5.40); WHITE BLOOD COUNT 10.5 10^3/uL (4.0-10.0)
[2023-12-08 18:33] LABS: ALBUMIN 3.5 G/DL (3.2-5.2); ALKALINE PHOSPHATASE 96 U/L (46-116); ALT/SGPT 10 U/L (7.0-40); AST/SGOT 13 U/L (<34); BILIRUBIN,TOTAL 0.5 MG/DL (0.3-1.2); BLOOD UREA NITROGEN 18 MG/DL (9-23); CALCIUM LEVEL 9.3 MG/DL (8.3-10.6); CARBON DIOXIDE LEVEL 33 MMOL/L (20-31); CHLORIDE LEVEL 101 MMOL/L (98-107); CREATININE FOR GFR 0.81 MG/DL (0.55-1.30); GLOMERULAR FILTRATION RATE > 60.0 (>32); GLUCOSE, FASTING 97 MG/DL (74-106); POTASSIUM SERUM 3.3 MMOL/L (3.5-5.1); SODIUM LEVEL 142 MMOL/L (136-145); TOTAL PROTEIN 6.8 G/DL (5.7-8.2)
== END ==
LOC: M SFHCADAM 15:23
PROVIDERS: ATTEND Physician Assistant
DX: R05.1 Acute cough (principal); R22.31 Localized swelling, mass and lump, right upper limb; R22.2 Localized swelling, mass and lump, trunk

== ENCOUNTER → 2023-12-09 | Outpatient (CLI) | payer MEDICARE, MEDICAID ==
[~2023-12-09] MED LIST changes: +GASTROGRAFIN SOLUTION 30ML As Ordered ONE; +ISOVUE-370 76% 100ML VIAL As Ordered ONE
== END ==
LOC: M RAD 12:49
PROVIDERS: ATTEND Physician Assistant
DX: R22.2 Localized swelling, mass and lump, trunk (principal); R05.1 Acute cough; R22.31 Localized swelling, mass and lump, right upper limb; Z85.048 Personal history of other malignant neoplasm of rectum, rectosigmoid junction, and anus; Z90.49 Acquired absence of other specified parts of digestive tract
CPT/HCPCS: 71260; 74178; Q9963; Q9967

== ENCOUNTER → 2023-12-23 | Outpatient (CLI) | payer MEDICARE, MEDICAID ==
[~2023-12-23] MED LIST changes: +ACET1TAB55 PO; -GASTROGRAFIN SOLUTION 30ML As Ordered ONE; -ISOVUE-370 76% 100ML VIAL As Ordered ONE; +LIDOCAINE 1% MDV 20ML VIAL As Ordered ONE; +TREL1AER INH
[2023-12-23 08:28] VITALS: TEMP 98.3
[2023-12-23 10:00] VITALS: BP 136/64; O2SAT 93
== END ==
LOC: M IRPRO 08:13
PROVIDERS: ATTEND Surgery
DX: C18.9 Malignant neoplasm of colon, unspecified (principal); C79.2 Secondary malignant neoplasm of skin; C79.89 Secondary malignant neoplasm of other specified sites

== ENCOUNTER → 2024-01-07 | Outpatient (REF) | payer MEDICARE, MEDICAID ==
[~2024-01-07] MED LIST changes: -LIDOCAINE 1% MDV 20ML VIAL As Ordered ONE
[2024-01-07 14:02] LABS: ALBUMIN 3.1 G/DL (3.2-5.2); ALKALINE PHOSPHATASE 90 U/L (46-116); ALT/SGPT < 9 U/L (7.0-40); AST/SGOT 10 U/L (<34); BILIRUBIN,TOTAL 0.4 MG/DL (0.3-1.2); BLOOD UREA NITROGEN 21 MG/DL (9-23); CALCIUM LEVEL 9.9 MG/DL (8.3-10.6); CARBON DIOXIDE LEVEL 30 MMOL/L (20-31); CHLORIDE LEVEL 103 MMOL/L (98-107); CREATININE FOR GFR 0.78 MG/DL (0.55-1.30); GLOMERULAR FILTRATION RATE > 60.0 (>32); GLUCOSE, FASTING 112 MG/DL (74-106); MAGNESIUM LEVEL 1.7 MG/DL (1.8-2.4); POTASSIUM SERUM 4.2 MMOL/L (3.5-5.1); SODIUM LEVEL 141 MMOL/L (136-145)
== END ==
LOC: M SFHCADAM 09:38
PROVIDERS: ATTEND Physician Assistant
DX: I50.23 Acute on chronic systolic (congestive) heart failure (principal); E87.6 Hypokalemia

== ENCOUNTER → 2024-01-14 | Outpatient (REF) | payer MEDICARE, MEDICAID ==
[2024-01-14 15:31] LABS: BLOOD UREA NITROGEN 15 MG/DL (9-23); CALCIUM LEVEL 9.1 MG/DL (8.3-10.6); CARBON DIOXIDE LEVEL 34 MMOL/L (20-31); CHLORIDE LEVEL 98 MMOL/L (98-107); CREATININE FOR GFR 0.76 MG/DL (0.55-1.30); GLOMERULAR FILTRATION RATE > 60.0 (>32); GLUCOSE, FASTING 115 MG/DL (74-106); MAGNESIUM LEVEL 1.7 MG/DL (1.8-2.4); POTASSIUM SERUM 3.4 MMOL/L (3.5-5.1); SODIUM LEVEL 139 MMOL/L (136-145)
== END ==
LOC: M SFHCADAM 11:07
PROVIDERS: ATTEND Physician Assistant
DX: I50.23 Acute on chronic systolic (congestive) heart failure (principal)

== ENCOUNTER → 2024-02-03 | Outpatient (REF) | payer MEDICARE, MEDICAID ==
[~2024-02-03] MED LIST changes: +MAGN400T2; +POTA10CA70
[2024-02-03 14:23] LABS: BASO # 0.1 10^3/uL (0.0-0.2); BASO % 0.6 % (0.0-1.0); EOS # 0.2 10^3/uL (0.0-0.5); EOS % 2.3 % (0.0-3.0); HEMATOCRIT 32.9 % (36.0-47.0); HEMOGLOBIN 9.8 g/dl (12.0-15.5); LYMPH # 1.5 10^3/uL (1.5-5.0); MEAN CORPUSCULAR HEMOGLOBIN 27.5 pg (27.0-33.0); MEAN CORPUSCULAR HGB CONC 29.8 g/dl (32.0-36.5); MEAN CORPUSCULAR VOLUME 92.2 fl (80.0-96.0); MONO # 0.9 10^3/uL (0.0-0.8); MONO % 10.4 % (2.0-8.0); NEUTROPHILS # 5.8 10^3/uL (1.5-8.5); NEUTROPHILS % 68.1 % (36.0-66.0); PLATELET COUNT, AUTOMATED 535 10^3/uL (150-450); RED BLOOD COUNT 3.57 10^6/uL (4.00-5.40); WHITE BLOOD COUNT 8.6 10^3/uL (4.0-10.0)
[2024-02-03 15:13] LABS: ALBUMIN 2.8 G/DL (3.2-5.2); ALKALINE PHOSPHATASE 95 U/L (46-116); ALT/SGPT 14 U/L (7.0-40); AST/SGOT 15 U/L (<34); BILIRUBIN,TOTAL 0.4 MG/DL (0.3-1.2); BLOOD UREA NITROGEN 16 MG/DL (9-23); CALCIUM LEVEL 9.2 MG/DL (8.3-10.6); CARBON DIOXIDE LEVEL 28 MMOL/L (20-31); CHLORIDE LEVEL 103 MMOL/L (98-107); CREATININE FOR GFR 0.85 MG/DL (0.55-1.30); GLOMERULAR FILTRATION RATE > 60.0 (>32); GLUCOSE, FASTING 104 MG/DL (74-106); POTASSIUM SERUM 5.2 MMOL/L (3.5-5.1); SODIUM LEVEL 138 MMOL/L (136-145); TOTAL PROTEIN 6.3 G/DL (5.7-8.2)
== END ==
LOC: M LABDRWAD 12:53
PROVIDERS: ATTEND Specialist
DX: C50.919 Malignant neoplasm of unspecified site of unspecified female breast (principal)